=== PATIENT | female | born 1990 | race Caucasian/White ===

== ENCOUNTER 2017-04-14 23:36 | Emergency (ER) | payer SELFPAY ==
[~2017-04-14] VITALS: Ht 175.3 cm; Wt 108.0 kg
[2017-04-14] MEDS ORDERED: NKM (23:57)
[2017-04-14 23:59] VITALS: BP 123/82
[2017-04-15] MEDS ORDERED: Morphine Sulfate 4mg/ml Inj IVP ONE (00:30)
[2017-04-15 00:38] LABS: APPEARANCE,URINE CLEAR; KETONES,URINE NEGATIVE (NEGATIVE); LEUKOCYTE ESTERASE ,URINE 1+ (NEGATIVE); NITRITE,URINE NEGATIVE (NEGATIVE); PH,URINE 5 (4.5-8.0); PROTEIN,URINE 2+ (NEGATIVE); UROBILINOGEN,URINE NORMAL MG/DL (0.0-1.0)
[2017-04-15 00:43] LABS: BASOPHILS % (AUTO) 0.6 % (0.0-2.0); EOSINOPHILS % (AUTO) 1.2 % (0.0-3.0); LYMPHOCYTES % (AUTO) 17.2 % (20.0-45.0); MEAN CORPUSCULAR HEMOGLOBIN 27.9 PG (27.0-31.0); MEAN CORPUSCULAR HGB CONC 33.1 G/DL (32.0-36.0); MEAN CORPUSCULAR VOLUME 84 FL (80-99); MEAN PLATELET VOLUME 9.4 FL (6.5-10.1); MONOCYTES % (AUTO) 5.1 % (1.0-10.0); NEUTROPHILS % (AUTO) 75.9 % (45.0-75.0); PLATELET COUNT 171 K/UL (150-450); RED BLOOD COUNT 4.68 M/UL (4.20-5.40); RED CELL DISTRIBUTION WIDTH 12.6 % (11.6-14.8); WHITE BLOOD COUNT 10.5 K/UL (4.8-10.8)
[2017-04-15 00:48] LABS: BACTERIA,URINE FEW /HPF; RBC,URINE 0-2 /HPF (0 - 2); SQUAMOUS EPITHELIAL CELL,UR FEW /LPF (NONE/OCC)
[2017-04-15 00:56] LABS: ALANINE AMINOTRANSFERASE 41 U/L (3-33); ALBUMIN/GLOBULIN RATIO 1.1 (1.0-2.7); ANION GAP 12 (5-15); ASPARTATE AMINO TRANSFERASE 57 U/L (5-40); CARBON DIOXIDE 27 mEQ/L (20-30); CHLORIDE 100 mEQ/L (98-107); CREATININE 0.9 mg/dL (0.5-0.9); GLOMERULAR FILTRATION RATE > 60 mL/min (>60); HEMOLYSIS 4; LIPASE 49 U/L (< 60); POTASSIUM 4.1 mEQ/L (3.4-4.9); SODIUM 139 mEQ/L (135-145); TOTAL PROTEIN 7.6 g/dL (6.6-8.7)
[2017-04-15] MEDS ORDERED: HYDROCODON-ACE1 EA15 ORAL (01:33)
--- NOTE | 2017-04-15 01:33 | Emergency Room Report ---
History of Present Illness General Chief Complaint: Abdominal Pain Source: Patient Present Illness HPI Is a 26-year-old female with no significant past medical history. She did have a history of gallstone diagnosed last year. Since then she gained a lot of weight. She complaining of epigastric arrival quadrant pain. Pain radiating to the back. Onset for last couple hours. Nausea but no vomiting. No fever chills but no diarrhea. Pain is 9/10. Allergies: Coded Allergies: IBUPROFEN (Verified Allergy, Unknown, 04/14/17) Patient History Past Medical History: see triage record, old chart reviewed Past Surgical History: none Pertinent Family History: none Social History: Denies: smoking Last Menstrual Period: 04/07/17 Now: No Immunizations: other Reviewed Nursing Documentation: PMH: Agreed, PSxH: Agreed Nursing Documentation-PMH Past Medical History: No History, Except For Review of Systems Eye: Denies: eye pain, blurred vision ENT: Denies: ear pain, nose congestion, throat swelling Respiratory: Denies: cough, shortness of breath Cardiovascular: Denies: chest pain, palpitations Gastrointestinal: Reports: abdominal pain, Denies: diarrhea, nausea, vomiting Musculoskeletal: Denies: back pain, joint pain Skin: Denies: rash Neurological: Denies: headache, numbness Endocrine: Denies: increased thirst, increased urine Hematologic/Lymphatic: Denies: easy bruising All Other Systems: negative except mentioned in HPI Physical Exam Vital Signs Date Time Temp Pulse Resp B/P (MAP) Pulse Ox O2 Delivery O2 Flow Rate FiO2 04/14/17 23:53 98.8 70 17 123/82 99 Room Air vitals normal Sp02 EP Interpretation: reviewed, normal General Appearance: well appearing, no apparent distress, alert Head: normocephalic, atraumatic Eyes: bilateral eye PERRL, bilateral eye EOMI ENT: hearing grossly normal, normal pharynx Neck: full range of motion, supple, no meningismus Respiratory: chest non-tender, lungs clear, normal breath sounds Cardiovascular #1: regular rate, rhythm, no murmur Gastrointestinal: normal bowel sounds, no mass, no organomegaly, no bruit, non- distended, tenderness - Epigastric/right upper quadrant pain Musculoskeletal: back normal, gait/station normal, normal range of motion Psychiatric: mood/affect normal Skin: warm/dry Medical Decision Making Diagnostic Impression: Primary Impression: Biliary colic symptom ER Course Patient with biliary colic. No evidence of obstruction or infection. She felt better now. We will discharge home. Lab Results Impression labs unremarkable Last Vital Signs Date Time Temp Pulse Resp B/P (MAP) Pulse Ox O2 Delivery O2 Flow Rate FiO2 04/15/17 00:54 98.8 04/14/17 23:59 70 17 123/82 99 Room Air Status: improved Disposition: HOME, SELF-CARE Condition: Stable Scripts Hydrocodone/Acetaminophen 5-325* (HYDROCODONE/ACETAMINOPHEN 5-325*) 1 Each Tablet 1 TAB ORAL Q6H Y for For Pain, #30 TAB 0 Refills Prov: RACHEAL LEE M.D. 04/15/17 Additional Instructions: Followup with your Dr. in 7 days. You may need a referral to see a surgeon. Return if symptom worsen. RACHEAL LEE M.D. Apr 15, 2017 01:33
[2017-04-15 01:34] VITALS: BP 123/82
== END 2017-04-15 01:34 | disposition home or self-care (01) ==
LOC: EMR 04-15 00:02
DX: K80.50 Calculus of bile duct without cholangitis or cholecystitis without obstruction (principal); Z88.6 Allergy status to analgesic agent
CPT/HCPCS: 36415; 80053; 81003; 81025; 83690; 85025; 96361; 96374; 96375; 99284; J2270; J2405

== ENCOUNTER 2018-07-28 05:46 | Inpatient (IN) | payer OTHER ==
[~2018-07-28] VITALS: Ht 172.7 cm; Wt 117.9 kg
[~2018-07-28 05:46] MED LIST: HYDROCODON-ACE1 EA15 ORAL; NKM
[2018-07-28] MEDS ORDERED: ZOFRAN4 M3 ORAL (06:11)
[2018-07-28] MEDS ORDERED: IBUPROFEN600 MG ORAL (06:11)
[2018-07-28] MEDS ORDERED: Sodium Chloride 500ML 500 ML IV ONE (06:22)
[2018-07-28] MEDS ORDERED: Isovue-300 100ml vial INJ PRN (06:30)
[2018-07-28] MEDS ORDERED: Morphine Sulfate 4mg/ml Inj (IV/IM USE ONLY) IVP ONE ×2 (06:30→11:30)
[2018-07-28 06:39] LABS: APPEARANCE,URINE CLEAR; BILIRUBIN, URINE NEGATIVE (NEGATIVE); GLUCOSE, URINE (UA) NEGATIVE (NEGATIVE); KETONES,URINE NEGATIVE (NEGATIVE); LEUKOCYTE ESTERASE ,URINE 1+ (NEGATIVE); NITRITE,URINE NEGATIVE (NEGATIVE); PH,URINE 5 (4.5-8.0); PROTEIN,URINE 1+ (NEGATIVE); UROBILINOGEN,URINE NORMAL MG/DL (0.0-1.0)
[2018-07-28 06:52] LABS: COLOR,URINE YELLOW
[2018-07-28] MEDS ORDERED: Morphine Sulfate 4mg/ml Inj (IV/IM USE ONLY) ONE (07:06)
[2018-07-28 07:29] LABS: BASOPHILS % (AUTO) 0.6 % (0.0-2.0); EOSINOPHILS % (AUTO) 1.1 % (0.0-3.0); HEMATOCRIT 39.3 % (37.0-47.0); HEMOGLOBIN 12.8 G/DL (12.0-16.0); LYMPHOCYTES % (AUTO) 10.5 % (20.0-45.0); MEAN CORPUSCULAR VOLUME 78 FL (80-99); MONOCYTES % (AUTO) 4.8 % (1.0-10.0); NEUTROPHILS % (AUTO) 83.1 % (45.0-75.0); PLATELET COUNT 177 K/UL (150-450); RED BLOOD COUNT 5.02 M/UL (4.20-5.40); RED CELL DISTRIBUTION WIDTH 12.3 % (11.6-14.8); WHITE BLOOD COUNT 12.2 K/UL (4.8-10.8)
[2018-07-28 07:42] LABS: ANION GAP 4 mmol/L (5-15); BLOOD UREA NITROGEN 12 mg/dL (7-18); CALCIUM 8.7 MG/DL (8.5-10.1); CARBON DIOXIDE 30 MMOL/L (21-32); CHLORIDE 105 MMOL/L (98-107); CREATININE 0.9 MG/DL (0.55-1.30); POTASSIUM 3.8 MMOL/L (3.5-5.1); SODIUM 139 MMOL/L (136-145)
[2018-07-28 07:47] LABS: ALANINE AMINOTRANSFERASE 41 U/L (12-78); ALBUMIN 3.4 G/DL (3.4-5.0); ALBUMIN/GLOBULIN RATIO 0.7 (1.0-2.7); ALKALINE PHOSPHATASE 93 U/L (46-116); ASPARTATE AMINO TRANSFERASE 18 U/L (15-37); BILIRUBIN,TOTAL 0.8 MG/DL (0.2-1.0)
--- NOTE | 2018-07-28 07:48 | Emergency Room Report ---
History of Present Illness General Chief Complaint: Abdominal Pain Source: Patient Present Illness HPI Patient is a 27-year-old female presented after increased right-sided flank pain. Patient gradual onset of symptoms. She reports having increased dysuria associated. She reports having increased right flank pain radiating to her back. Patient recently been diagnosed with gallstones. She had not been having any vomiting. She reports having increased pain after eating. She had the recent increased headache as well as mild sore throat. Allergies: Coded Allergies: IBUPROFEN (Verified Allergy, Unknown, 04/14/17) Patient History Last Menstrual Period: apr 07 Now: No Reviewed Nursing Documentation: PMH: Agreed; PSxH: Agreed Nursing Documentation-PMH Hx Gastrointestinal Problems: Yes - gall stone Review of Systems All Other Systems: negative except mentioned in HPI Physical Exam Vital Signs Date Time Temp Pulse Resp B/P (MAP) Pulse Ox O2 Delivery O2 Flow Rate FiO2 07/28/18 06:05 99.5 91 18 134/83 96 Room Air Sp02 EP Interpretation: reviewed, normal General Appearance: normal inspection, well appearing, no apparent distress, alert, GCS 15, non-toxic Head: atraumatic ENT: normal ENT inspection, hearing grossly normal, normal voice Neck: normal inspection, full range of motion, supple, no bony tend Respiratory: normal inspection, lungs clear, normal breath sounds, no respiratory distress, no retraction, no wheezing Cardiovascular #1: regular rate, rhythm, no edema Gastrointestinal: soft, tenderness - right upper quadrant Genitourinary: no CVA tenderness Musculoskeletal: normal inspection, back normal, normal range of motion Neurologic: normal inspection, alert, oriented x3, responsive, oyster shipper III-XII nml as tested, speech normal Psychiatric: normal inspection, judgement/insight normal, mood/affect normal Skin: normal inspection, normal color, no rash Medical Decision Making Diagnostic Impression: Primary Impression: Cholecystitis ER Course Patient presented for abdominal pain. Differential diagnoses included ischemic bowel, appendicitis, perforated viscus, abdominal aortic aneurysm, inferior myocardial infarction, viral gastroenteritis Because of complexity of patient's case laboratory testing and imaging studies were ordered. CT imaging showed evidence of cholecystitis read by radiology. Abdominal ultrasound showed no definite gallstones, fatty liver. The patient was given IV fluids as well as IV antibiotics.Dr. Parmar was contacted for surgical consult.Dr. Scott Wood was contacted for inpatient management due to panel position. Labs Test 07/28/18 06:15 07/28/18 06:40 Urine Color Yellow Urine Appearance Clear Urine pH 5 (4.5-8.0) Urine Specific [place] 1.020 (1.005-1.035) Urine Protein 1+ (NEGATIVE) Urine Glucose (UA) Negative (NEGATIVE) Urine Ketones Negative (NEGATIVE) Urine Blood Negative (NEGATIVE) Urine Nitrite Negative (NEGATIVE) Urine Bilirubin Negative (NEGATIVE) Urine Urobilinogen Normal MG/DL (0.0-1.0) Urine Leukocyte Esterase 1+ (NEGATIVE) Urine RBC 0-2 /HPF (0 - 2) Urine WBC 0-2 /HPF (0 - 2) Urine Squamous Epithelial Cells Few /LPF (NONE/OCC) Urine Bacteria Few /HPF (NONE) Urine Mucus Few /LPF (NONE/OCC) Urine HCG, Qualitative Negative (NEGATIVE) White Blood Count 12.2 K/UL (4.8-10.8) Red Blood Count 5.02 M/UL (4.20-5.40) Hemoglobin 12.8 G/DL (12.0-16.0) Hematocrit 39.3 % (37.0-47.0) Mean Corpuscular Volume 78 FL (80-99) Mean Corpuscular Hemoglobin 25.6 PG (27.0-31.0) Mean Corpuscular Hemoglobin Concent 32.6 G/DL (32.0-36.0) Red Cell Distribution Width 12.3 % (11.6-14.8) Platelet Count 177 K/UL (150-450) Mean Platelet Volume 9.2 FL (6.5-10.1) Neutrophils (%) (Auto) 83.1 % (45.0-75.0) Lymphocytes (%) (Auto) 10.5 % (20.0-45.0) Monocytes (%) (Auto) 4.8 % (1.0-10.0) Eosinophils (%) (Auto) 1.1 % (0.0-3.0) Basophils (%) (Auto) 0.6 % (0.0-2.0) Prothrombin Time 10.8 SEC (9.30-11.50) Prothromb Time International Ratio 1.0 (0.9-1.1) Activated Partial Thromboplast Time 35 SEC (23-33) Sodium Level 139 MMOL/L (136-145) Potassium Level 3.8 MMOL/L (3.5-5.1) Chloride Level 105 MMOL/L (98-107) Carbon Dioxide Level 30 MMOL/L (21-32) Anion Gap 4 mmol/L (5-15) Blood Urea Nitrogen 12 mg/dL (7-18) Creatinine 0.9 MG/DL (0.55-1.30) Estimat Glomerular Filtration Rate > 60 mL/min (>60) Glucose Level 125 MG/DL (74-106) Calcium Level 8.7 MG/DL (8.5-10.1) Total Bilirubin 0.8 MG/DL (0.2-1.0) Aspartate Amino Transf (AST/SGOT) 18 U/L (15-37) Alanine Aminotransferase (ALT/SGPT) 41 U/L (12-78) Alkaline Phosphatase 93 U/L (46-116) Total Protein 8.2 G/DL (6.4-8.2) Albumin 3.4 G/DL (3.4-5.0) Globulin 4.8 g/dL Albumin/Globulin Ratio 0.7 (1.0-2.7) Lipase 135 U/L (73-393) Last Vital Signs Date Time Temp Pulse Resp B/P (MAP) Pulse Ox O2 Delivery O2 Flow Rate FiO2 07/28/18 07:25 99.5 07/28/18 06:20 91 18 Room Air 07/28/18 06:05 134/83 96 Status: improved Disposition: HOME, SELF-CARE Condition: Stable Referrals: CAMERON BAZAN,REFERRING (PCP) You Fontenot MD Jul 28, 2018 07:48
[2018-07-28 08:12] VITALS: BP 128/83
--- NOTE | 2018-07-28 09:02 | Diagnostic Imaging Report ---
EXAM: CT Abdomen and Pelvis With Intravenous Contrast CLINICAL HISTORY: 27-year-old female with abdominal pain. TECHNIQUE: Axial computed tomography images of the abdomen and pelvis with intravenous contrast. Coronal and sagittal reformatted images were created and reviewed. CTDI is 52.65 mGy and DLP is 1947 mGy-cm. One or more of the following dose reduction techniques were used: automated exposure control, adjustment of the mA and/or kV according to patient size, use of iterative reconstruction technique. COMPARISON: None. FINDINGS: Lung bases: Unremarkable. ABDOMEN: Liver: Borderline/mildly enlarged, fatty liver. Gallbladder and bile ducts: Moderately distended gallbladder, with mild pericholecystic fat stranding, and probable partially rim calcified stone in the neck region, measuring up to approximately 2 cm. Mildly dilated CBD, measuring up to 10 mm in diameter, without obvious obstructing stone or mass. Pancreas: Unremarkable. Spleen: Unremarkable. Adrenals: Unremarkable. Kidneys and ureters: Unremarkable. Stomach and bowel: Unremarkable. PELVIS: Appendix: Unremarkable. Bladder: Unremarkable. Reproductive: Unremarkable. ABDOMEN and PELVIS: Intraperitoneal space: Minimal pelvic ascites. No free air. Bones/joints: No acute abnormality. Soft tissues: Grossly unremarkable. Vasculature: Unremarkable. Lymph nodes: No pathologically enlarged lymph nodes. IMPRESSION: Probable acute calculous cholecystitis; additional mildly dilated CBD, without obvious obstructing stone or mass. If further imaging evaluation is desired, suggest biliary ultrasound and/or abdominal MRI/MRCP.
--- NOTE | 2018-07-28 10:19 | Diagnostic Imaging Report ---
EXAM: US Abdomen Limited, Right Upper Quadrant CLINICAL HISTORY: ABD PAIN TECHNIQUE: Real-time ultrasound of the right upper quadrant with image documentation. COMPARISON: CT abdomen and pelvis dated 07/28/18. FINDINGS: Liver: Liver diameter of 21 cm. Diffusely echogenic liver, suggesting fatty infiltration. Gallbladder: Unremarkable. No gallstones. Normal wall thickness measuring 2.5 mm. No pericholecystic fluid. Common bile duct: Common bile duct diameter of 3 mm, within normal limits. No stones. No dilation. Pancreas: Unremarkable as visualized. Pancreatic body and tail are obscured by bowel gas. Right kidney: Right kidney length of 4.6 cm. Left kidney length of 13. 4 cm. Normal cortical thickness. No visible parenchymal lesions. No visible stones. No hydronephrosis. Spleen: Spleen diameter of 11.2 cm, within normal limits. Aorta: Visualized portions of the aorta appear unremarkable. Inferior vena cava: Visualized portions of the IVC appear unremarkable. Free fluid: No free fluid identified. IMPRESSION: No acute findings. No sonographic evidence of cholelithiasis. Normal caliber of the common bile duct on this exam. Hepatomegaly. Diffusely echogenic liver suggests fatty infiltration.
--- NOTE | 2018-07-28 10:52 | General Progress Note ---
Assessment/Plan Problem List: (1) Abdominal pain ICD Codes: R10.9 - Unspecified abdominal pain SNOMED: 52131643 Assessment/Plan possible acute joann no dilated CBD or elevated LFTS hold ERCP ordered HIDA scan fu surg Subjective ROS Limited/Unobtainable: Yes Allergies: Coded Allergies: IBUPROFEN (Verified Allergy, Unknown, 04/14/17) Subjective abd pain Objective Last 24 Hour Vital Signs Date Time Temp Pulse Resp B/P (MAP) Pulse Ox O2 Delivery O2 Flow Rate FiO2 07/28/18 08:12 73 17 128/83 99 Room Air 07/28/18 07:25 99.5 07/28/18 06:20 91 18 Room Air 07/28/18 06:05 99.5 91 18 134/83 96 Room Air Laboratory Tests 07/28/18 06:15: Urine Color Yellow, Urine Appearance Clear, Urine pH 5, Urine Specific [place] 1.020, Urine Protein 1+H, Urine Glucose (UA) Negative, Urine Ketones Negative, Urine Blood Negative, Urine Nitrite Negative, Urine Bilirubin Negative, Urine Urobilinogen Normal, Urine Leukocyte Esterase 1+H, Urine RBC 0-2, Urine WBC 0-2 , Urine Squamous Epithelial Cells Few, Urine Bacteria Few, Urine Mucus FewH, Urine HCG, Qualitative Negative 07/28/18 06:40: White Blood Count 12.2H, Red Blood Count 5.02, Hemoglobin 12.8, Hematocrit 39.3 , Mean Corpuscular Volume 78L, Mean Corpuscular Hemoglobin 25.6L, Mean Corpuscular Hemoglobin Concent 32.6, Red Cell Distribution Width 12.3, Platelet Count 177, Mean Platelet Volume 9.2, Neutrophils (%) (Auto) 83.1H, Lymphocytes ( %) (Auto) 10.5L, Monocytes (%) (Auto) 4.8, Eosinophils (%) (Auto) 1.1, Basophils (%) (Auto) 0.6, Prothrombin Time 10.8, Prothromb Time International Ratio 1.0, Activated Partial Thromboplast Time 35H, Sodium Level 139, Potassium Level 3.8, Chloride Level 105, Carbon Dioxide Level 30, Anion Gap 4L, Blood Urea Nitrogen 12, Creatinine 0.9, Estimat Glomerular Filtration Rate > 60, Glucose Level 125H, Calcium Level 8.7, Total Bilirubin 0.8, Aspartate Amino Transf (AST/SGOT) 18, Alanine Aminotransferase (ALT/SGPT) 41, Alkaline Phosphatase 93, Total Protein 8.2, Albumin 3.4, Globulin 4.8, Albumin/Globulin Ratio 0.7L, Lipase 135 Height (Feet): 5 Height (Inches): 8.00 Weight (Pounds): 260 General Appearance: alert EENT: normal ENT inspection Neck: supple Cardiovascular: normal rate Respiratory/Chest: lungs clear Abdomen: normal bowel sounds, soft, tender Extremities: non-tender John Milner MD Jul 28, 2018 10:52
--- NOTE | 2018-07-28 13:29 | Consultation ---
Consult Note Consult Note # [id number] Alberto Spring MD Jul 28, 2018 13:29
[2018-07-28 14:08] VITALS: BP 135/79
--- NOTE | 2018-07-28 14:18 | Consultation ---
History of Present Illness General Date patient seen: Jul 28, 2018 Chief Complaint: Abdominal Pain Reason for Consultation: abdominal pain Present Illness HPI 27 year old female presents with abdominal pain for 2-3 days. Pain initially noted as vague right sided abdominal pain on thrusday. since pain worsening and today was debilitating. came to ED for evaluation. intermittent nausea. no emesis. nml bowel function. pain mainly RUQ without radiation. prior similar symptoms and diagnosed with symptomatic cholelithiasis last year. in ED US/CT noted. surgery called to evaluate. patient seen, chart reviewed, patient examined. Allergies: Coded Allergies: IBUPROFEN (Verified Allergy, Unknown, 04/14/17) Medication History Scheduled No Known Medications* (NKM - No Known Medications*), 0 ., (Reported) Scheduled PRN Hydrocodone/Acetaminophen 5-325* (Hydrocodone/Acetaminophen 5-325*), 1 TAB ORAL Q6H PRN for For Pain Ibuprofen* (Motrin*), 600 MG ORAL Q6H PRN for For Pain, (Reported) Ondansetron* (Zofran*), 4 MG ORAL Q6H PRN for Nausea & Vomiting, (Reported) Patient History History Provided By: Patient, Medical Record, PMD Healthcare decision maker Resuscitation status Advanced Directive on File Past Medical/Surgical History Past Medical/Surgical History: (1) Abdominal pain (2) Cholecystitis Review of Systems All Other Systems: negative except mentioned in HPI Physical Exam General Appearance: no apparent distress, alert Lines, tubes and drains: peripheral HEENT: normocephalic, atraumatic Neck: supple, normal inspection Respiratory/Chest: normal breath sounds, no respiratory distress Cardiovascular/Chest: regular rhythm Abdomen: soft, no organomegaly, no mass, tender Extremities: non-tender, normal inspection, no calf tenderness Neurologic: alert, oriented x 3 Last 24 Hour Vital Signs Date Time Temp Pulse Resp B/P (MAP) Pulse Ox O2 Delivery O2 Flow Rate FiO2 07/28/18 14:08 100.7 72 17 135/79 (97) 98 07/28/18 08:12 73 17 128/83 99 Room Air 07/28/18 07:25 99.5 07/28/18 06:20 91 18 Room Air 07/28/18 06:05 99.5 91 18 134/83 96 Room Air Laboratory Tests Test 07/28/18 06:15 07/28/18 06:40 Urine Color Yellow Urine Appearance Clear Urine pH 5 (4.5-8.0) Urine Specific [place] 1.020 (1.005-1.035) Urine Protein 1+ (NEGATIVE) H Urine Glucose (UA) Negative (NEGATIVE) Urine Ketones Negative (NEGATIVE) Urine Blood Negative (NEGATIVE) Urine Nitrite Negative (NEGATIVE) Urine Bilirubin Negative (NEGATIVE) Urine Urobilinogen Normal MG/DL (0.0-1.0) Urine Leukocyte Esterase 1+ (NEGATIVE) H Urine RBC 0-2 /HPF (0 - 2) Urine WBC 0-2 /HPF (0 - 2) Urine Squamous Epithelial Cells Few /LPF (NONE/OCC) Urine Bacteria Few /HPF (NONE) Urine Mucus Few /LPF (NONE/OCC) H Urine HCG, Qualitative Negative (NEGATIVE) White Blood Count 12.2 K/UL (4.8-10.8) H Red Blood Count 5.02 M/UL (4.20-5.40) Hemoglobin 12.8 G/DL (12.0-16.0) Hematocrit 39.3 % (37.0-47.0) Mean Corpuscular Volume 78 FL (80-99) L Mean Corpuscular Hemoglobin 25.6 PG (27.0-31.0) L Mean Corpuscular Hemoglobin Concent 32.6 G/DL (32.0-36.0) Red Cell Distribution Width 12.3 % (11.6-14.8) Platelet Count 177 K/UL (150-450) Mean Platelet Volume 9.2 FL (6.5-10.1) Neutrophils (%) (Auto) 83.1 % (45.0-75.0) H Lymphocytes (%) (Auto) 10.5 % (20.0-45.0) L Monocytes (%) (Auto) 4.8 % (1.0-10.0) Eosinophils (%) (Auto) 1.1 % (0.0-3.0) Basophils (%) (Auto) 0.6 % (0.0-2.0) Prothrombin Time 10.8 SEC (9.30-11.50) Prothromb Time International Ratio 1.0 (0.9-1.1) Activated Partial Thromboplast Time 35 SEC (23-33) H Sodium Level 139 MMOL/L (136-145) Potassium Level 3.8 MMOL/L (3.5-5.1) Chloride Level 105 MMOL/L (98-107) Carbon Dioxide Level 30 MMOL/L (21-32) Anion Gap 4 mmol/L (5-15) L Blood Urea Nitrogen 12 mg/dL (7-18) Creatinine 0.9 MG/DL (0.55-1.30) Estimat Glomerular Filtration Rate > 60 mL/min (>60) Glucose Level 125 MG/DL (74-106) H Calcium Level 8.7 MG/DL (8.5-10.1) Total Bilirubin 0.8 MG/DL (0.2-1.0) Aspartate Amino Transf (AST/SGOT) 18 U/L (15-37) Alanine Aminotransferase (ALT/SGPT) 41 U/L (12-78) Alkaline Phosphatase 93 U/L (46-116) Total Protein 8.2 G/DL (6.4-8.2) Albumin 3.4 G/DL (3.4-5.0) Globulin 4.8 g/dL Albumin/Globulin Ratio 0.7 (1.0-2.7) L Lipase 135 U/L (73-393) Height (Feet): 5 Height (Inches): 8.00 Weight (Pounds): 260 Medications Current Medications Medications (Trade) Dose Ordered Sig/Kian Route PRN Reason Start Time Stop Time Status Last Admin Dose Admin Iopamidol (Isovue-300 100ml) 100 ml NOW PRN INJ Radiology Procedure 07/28/18 06:30 Piperacillin Sod/ Tazobactam Sod 3.375 gm/Sodium Chloride 110 ml @ 27.5 mls/hr EVERY 8 HOURS IVPB 07/28/18 14:30 08/02/18 14:29 Assessment/Plan Problem List: (1) Abdominal pain Assessment & Plan: likely acute cholecystitis based on history and exam CT noted US noted labs noted NPO IV fluids IV Abx HIDA scan thank you will follow with recs ICD Codes: R10.9 - Unspecified abdominal pain SNOMED: [id number] Qualifiers: Qualified Codes: R10.11 - Right upper quadrant pain Status: stable Bran Parmar Jul 28, 2018 14:18
[2018-07-28] MEDS: Piperacillin/Tazobactam 3.375 GM in NS 110 ML IVPB SCH ×2 (14:19→21:38)
[2018-07-28] MEDS ORDERED: LORazepam Inj 2mg/ml 1ml IV PRN (14:20)
[2018-07-28] MEDS ORDERED: Morphine Sulfate 2mg/ml Inj IVP PRN (14:21)
[2018-07-28] MEDS: D5NS w/KCl 40mEq 1000ml 1,000 ML IV SCH (15:59)
[2018-07-28 16:00] VITALS: BP 130/73
[2018-07-28] MEDS: Morphine Sulfate 4mg/ml Inj (IV/IM USE ONLY) IVP PRN (16:00)
[2018-07-28 20:00] VITALS: BP 127/74
--- NOTE | 2018-07-28 22:59 | Consultation ---
DATE OF CONSULTATION: 07/28/2018 INFECTIOUS DISEASES CONSULTATION CONSULTING PHYSICIAN: Alberto Spring M.D. REFERRING PHYSICIAN: Scott Wood D.O. REASON FOR CONSULTATION: Evaluation of the patient for cholecystitis, leukocytosis, and antibiotic management. HISTORY OF PRESENT ILLNESS: The patient is a 27-year-old female with past medical history significant for gallbladder stones, who was admitted to this medical center with complaint of right upper quadrant pain. The patient has history of vague abdominal pain postprandial in the right upper quadrant since Thanksgiving, however, since about 2 days ago, the patient has persistent pain in the area. On the first day, the patient had some nausea associated with diarrhea. The above symptom has resolved, however, the patient has persistent pain. At the time of admission, the patient was found to have white blood cells 12. There has been concern for possible cholecystitis. Infectious Diseases consultation has been requested for further evaluation of the patient and antibiotic management. PAST MEDICAL HISTORY: History of gallbladder stone. ALLERGIES: Ibuprofen. MEDICATIONS: Currently off of antibiotics. FAMILY HISTORY: Not contributing. SOCIAL HISTORY: Negative for alcohol, drug abuse, or smoking. PHYSICAL EXAMINATION: VITAL SIGNS: Temperature 99.5, blood pressure 120/73, pulse 73, respiratory rate 18. HEENT: No pale conjunctivae. No icterus. NECK: No lymphadenopathy. CHEST: Clear. HEART: S1 and S2. ABDOMEN: The patient has right upper quadrant tenderness. Rao sign positive. Bowel sounds present. EXTREMITIES: No cyanosis at this time. NEUROLOGIC: Awake and alert. SKIN: No rash. LABORATORY AND DIAGNOSTIC DATA: White blood cells 12.2, hemoglobin 12.8, platelet 177,000. UA unremarkable. BUN and creatinine normal. ALT, AST, alkaline phosphatase within normal range. Lipase 135. Ultrasound of the abdomen, no acute findings, no evidence of cholelithiasis. CT of the abdomen, probable acute calculous cholecystitis, mildly dilated common bile duct. ASSESSMENT: The patient is a 27-year-old female with: 1. Low-grade fever. 2. Leukocytosis. 3. Right upper quadrant pain, very suggestive of acute cholecystitis, history of cholelithiasis. PLAN: 1. We will continue the patient on IV Zosyn . 2. Monitor CBC. 3. BMP. 4. Monitor cultures (blood). 5. HIDA scan has been ordered. 6. We will follow GI and Surgical consultation recommendations. 7. Based on the patient's clinical course and laboratories, we will do further recommendations. Alberto Spring M.D. DR: Db JOB#: [id number] CC:
[2018-07-29] VITALS (8 sets, daily range): BP systolic 122–144; BP diastolic 18–94
[2018-07-29] MEDS: D5NS w/KCl 40mEq 1000ml 1,000 ML IV SCH ×3 (01:19→21:22)
[2018-07-29] MEDS: Morphine Sulfate 4mg/ml Inj (IV/IM USE ONLY) IVP PRN (01:42)
[2018-07-29 06:03] LABS: BASOPHILS % (AUTO) 0.7 % (0.0-2.0); HEMATOCRIT 39.4 % (37.0-47.0); LYMPHOCYTES % (AUTO) 7.3 % (20.0-45.0); MEAN CORPUSCULAR VOLUME 78 FL (80-99); NEUTROPHILS % (AUTO) 84.9 % (45.0-75.0); PLATELET COUNT 173 K/UL (150-450); RED BLOOD COUNT 5.07 M/UL (4.20-5.40); RED CELL DISTRIBUTION WIDTH 12.2 % (11.6-14.8); WHITE BLOOD COUNT 15.2 K/UL (4.8-10.8)
[2018-07-29 06:10] LABS: INR 1.1 (0.9-1.1)
[2018-07-29] MEDS: Piperacillin/Tazobactam 3.375 GM in NS 110 ML IVPB SCH ×3 (06:23→21:22)
[2018-07-29 06:43] LABS: ALANINE AMINOTRANSFERASE 76 U/L (12-78); ALBUMIN/GLOBULIN RATIO 0.6 (1.0-2.7); ALKALINE PHOSPHATASE 116 U/L (46-116); ANION GAP 7 mmol/L (5-15); ASPARTATE AMINO TRANSFERASE 50 U/L (15-37); BILIRUBIN,TOTAL 1.2 MG/DL (0.2-1.0); BLOOD UREA NITROGEN 8 mg/dL (7-18); CALCIUM 8.3 MG/DL (8.5-10.1); CARBON DIOXIDE 27 MMOL/L (21-32); CHLORIDE 102 MMOL/L (98-107); CREATININE 0.8 MG/DL (0.55-1.30); POTASSIUM 3.9 MMOL/L (3.5-5.1); SODIUM 136 MMOL/L (136-145)
[2018-07-29 06:44] LABS: BILIRUBIN,DIRECT 0.2 MG/DL (0.0-0.3)
--- NOTE | 2018-07-29 07:47 | General Progress Note ---
Assessment/Plan Problem List: (1) Abdominal pain ICD Codes: R10.9 - Unspecified abdominal pain SNOMED: [id number] Qualifiers: Qualified Codes: R10.11 - Right upper quadrant pain Assessment/Plan possible acute joann no dilated CBD or elevated LFTS hold ERCP ordered HIDA scan fu surg Subjective ROS Limited/Unobtainable: Yes Allergies: Coded Allergies: IBUPROFEN (Verified Allergy, Unknown, 04/14/17) Subjective abd pain Objective Last 24 Hour Vital Signs Date Time Temp Pulse Resp B/P (MAP) Pulse Ox O2 Delivery O2 Flow Rate FiO2 07/29/18 04:00 98.8 88 20 134/18 (56) 97 07/29/18 02:12 99.0 07/29/18 00:00 99.0 87 20 138/77 (97) 98 07/28/18 20:04 Room Air 07/28/18 20:00 98.8 86 18 127/74 (91) 98 07/28/18 16:47 100.0 07/28/18 16:00 101.0 80 18 130/73 (92) 98 07/28/18 14:08 100.7 72 17 135/79 (97) 98 07/28/18 14:07 Room Air 07/28/18 13:08 101.0 07/28/18 12:45 62 15 110/53 95 Room Air 07/28/18 08:12 73 17 128/83 99 Room Air Intake and Output 07/28/18 07/29/18 19:00 07:00 Intake Total 300 ml 710.0 ml Balance 300 ml 710.0 ml Intake Oral 200 ml IV Total 100 ml 710.0 ml # Voids 2 4 # Bowel Movements 1 Laboratory Tests 07/29/18 05:38: White Blood Count 15.2H, Red Blood Count 5.07, Hemoglobin 13.0, Hematocrit 39.4 , Mean Corpuscular Volume 78L, Mean Corpuscular Hemoglobin 25.7L, Mean Corpuscular Hemoglobin Concent 33.1, Red Cell Distribution Width 12.2, Platelet Count 173, Mean Platelet Volume 8.7, Neutrophils (%) (Auto) 84.9H, Lymphocytes ( %) (Auto) 7.3L, Monocytes (%) (Auto) 7.0, Eosinophils (%) (Auto) 0.0, Basophils (%) (Auto) 0.7, Prothrombin Time 11.7H, Prothromb Time International Ratio 1.1, Activated Partial Thromboplast Time 38H, Sodium Level 136, Potassium Level 3.9, Chloride Level 102, Carbon Dioxide Level 27, Anion Gap 7, Blood Urea Nitrogen 8 , Creatinine 0.8, Estimat Glomerular Filtration Rate > 60, Glucose Level 127H, Calcium Level 8.3L, Total Bilirubin 1.2H, Direct Bilirubin 0.2, Aspartate Amino Transf (AST/SGOT) 50H, Alanine Aminotransferase (ALT/SGPT) 76, Alkaline Phosphatase 116, Total Protein 7.9, Albumin 3.0L, Globulin 4.9, Albumin/ Globulin Ratio 0.6L Height (Feet): 5 Height (Inches): 8.00 Weight (Pounds): 260 General Appearance: alert EENT: normal ENT inspection Neck: supple Cardiovascular: normal rate Respiratory/Chest: lungs clear Abdomen: soft, tender Extremities: non-tender John Milner MD Jul 29, 2018 07:47
[2018-07-29] MEDS: Morphine Sulfate 2mg/ml Inj IVP PRN ×2 (08:43→14:43)
[2018-07-29] MEDS ORDERED: Tubing IV Secondary IV ONE (08:43)
--- NOTE | 2018-07-29 14:59 | General Surgery Progress Note ---
General Surgery-Progress Note Subjective Additional Comments fevers. leukocytosis. RUQ tenderness. HIDA pending Objective Last 24 Hour Vital Signs Date Time Temp Pulse Resp B/P (MAP) Pulse Ox O2 Delivery O2 Flow Rate FiO2 07/29/18 12:00 100.0 82 20 122/83 (96) 97 07/29/18 10:30 98.8 86 20 131/82 (98) 97 07/29/18 09:35 100.1 07/29/18 09:00 Room Air 07/29/18 08:00 101.0 96 20 144/94 (111) 96 07/29/18 04:00 98.8 88 20 134/18 (56) 97 07/29/18 02:12 99.0 07/29/18 00:00 99.0 87 20 138/77 (97) 98 07/28/18 20:04 Room Air 07/28/18 20:00 98.8 86 18 127/74 (91) 98 07/28/18 16:00 101.0 80 18 130/73 (92) 98 I&O Intake and Output 07/28/18 07/29/18 19:00 07:00 Intake Total 300 ml 810.0 ml Balance 300 ml 810.0 ml Intake Oral 200 ml IV Total 100 ml 810.0 ml # Voids 2 4 # Bowel Movements 1 Drains: none Cardiovascular: RSR Respiratory: clear Abdomen: soft, tenderness, present bowel sounds Extremities: no cyanosis Laboratory Tests Test 07/29/18 05:38 White Blood Count 15.2 K/UL (4.8-10.8) H Red Blood Count 5.07 M/UL (4.20-5.40) Hemoglobin 13.0 G/DL (12.0-16.0) Hematocrit 39.4 % (37.0-47.0) Mean Corpuscular Volume 78 FL (80-99) L Mean Corpuscular Hemoglobin 25.7 PG (27.0-31.0) L Mean Corpuscular Hemoglobin Concent 33.1 G/DL (32.0-36.0) Red Cell Distribution Width 12.2 % (11.6-14.8) Platelet Count 173 K/UL (150-450) Mean Platelet Volume 8.7 FL (6.5-10.1) Neutrophils (%) (Auto) 84.9 % (45.0-75.0) H Lymphocytes (%) (Auto) 7.3 % (20.0-45.0) L Monocytes (%) (Auto) 7.0 % (1.0-10.0) Eosinophils (%) (Auto) 0.0 % (0.0-3.0) Basophils (%) (Auto) 0.7 % (0.0-2.0) Prothrombin Time 11.7 SEC (9.30-11.50) H Prothromb Time International Ratio 1.1 (0.9-1.1) Activated Partial Thromboplast Time 38 SEC (23-33) H Sodium Level 136 MMOL/L (136-145) Potassium Level 3.9 MMOL/L (3.5-5.1) Chloride Level 102 MMOL/L (98-107) Carbon Dioxide Level 27 MMOL/L (21-32) Anion Gap 7 mmol/L (5-15) Blood Urea Nitrogen 8 mg/dL (7-18) Creatinine 0.8 MG/DL (0.55-1.30) Estimat Glomerular Filtration Rate > 60 mL/min (>60) Glucose Level 127 MG/DL (74-106) H Calcium Level 8.3 MG/DL (8.5-10.1) L Total Bilirubin 1.2 MG/DL (0.2-1.0) H Direct Bilirubin 0.2 MG/DL (0.0-0.3) Aspartate Amino Transf (AST/SGOT) 50 U/L (15-37) H Alanine Aminotransferase (ALT/SGPT) 76 U/L (12-78) Alkaline Phosphatase 116 U/L (46-116) Total Protein 7.9 G/DL (6.4-8.2) Albumin 3.0 G/DL (3.4-5.0) L Globulin 4.9 g/dL Albumin/Globulin Ratio 0.6 (1.0-2.7) L Plan Problems: (1) Abdominal pain Assessment & Plan: likely acute cholecystitis based on history and exam CT noted US noted labs noted febrile/leukocytosis RUQ tender NPO p MN IV fluids IV Abx HIDA scan thank you will follow with Bran Vides Jul 29, 2018 14:59
--- NOTE | 2018-07-29 17:29 | History and Physical Report ---
DATE OF ADMISSION: 07/28/2018 TIME SEEN: On 07/29/2018 at 8 a.m. CONSULTANTS: 1. John Milner M.D. 2. Bran Parmar M.D. 3. Alberto Spring M.D. 4. Marce Gutierres M.D. CHIEF COMPLAINT: Right upper quadrant pain, cholecystitis. BRIEF HISTORY: This is a 27-year-old female, who lives at home and presented with slight nausea and abdominal pain for 3 days and also right upper quadrant pain, came to [place], diagnosed with cholecystitis and leukocytosis, and admitted to medical floor for further treatment. Currently, calm in bed, slight abdominal pain, no complaint. REVIEW OF SYSTEMS: No chest pain. No shortness of breath. Slight nausea. No vomiting or diarrhea. PAST MEDICAL HISTORY: Nothing. PAST SURGICAL HISTORY: Nothing. ALLERGIES: Ibuprofen. MEDICATIONS: Include Pepcid, Tylenol, Zosyn, morphine, Zofran, lorazepam, diphenhydramine. SOCIAL HISTORY: No smoking. No alcohol. No intravenous drug abuse. FAMILY HISTORY: Noncontributory. PHYSICAL EXAMINATION: GENERAL: Calm in bed, oriented x3, in no acute distress. VITAL SIGNS: Temperature is 101, pulse 96, respirations 20, and blood pressure 144/91. CARDIOVASCULAR: No murmur. LUNGS: Distant and clear. ABDOMEN: Bowel sounds positive. Slightly tender. No guarding. No rigidity. No rebound. EXTREMITIES: No cyanosis or edema. LABORATORY AND DIAGNOSTIC DATA: Laboratories at this time show white count 15, otherwise CBC is normal. BMP shows glucose 127, calcium 8.3, AST 50, albumin 3.0, otherwise normal. INR is 1.1 and PTT is 38. Urinalysis shows 1+ leukocyte esterase. ASSESSMENT: Cholecystitis, UTI, fever. PLAN: Continue previous medications. Antibiotics per Infectious Disease. Fever control. Dietary followup. GI and Surgery followup. CBC and BMP in the morning. Scott Wood D.O. DR: Adeline JOB#: [id number] CC:
[2018-07-30] VITALS: BP 123/74
[2018-07-30 04:00] VITALS: BP 134/92
[2018-07-30] MEDS: Morphine Sulfate 4mg/ml Inj (IV/IM USE ONLY) IVP PRN (04:42)
[2018-07-30] MEDS: Piperacillin/Tazobactam 3.375 GM in NS 110 ML IVPB SCH ×3 (05:35→20:52)
[2018-07-30 06:30] LABS: BASOPHILS % (AUTO) 0.4 % (0.0-2.0); EOSINOPHILS % (AUTO) 0.3 % (0.0-3.0); HEMATOCRIT 34.3 % (37.0-47.0); HEMOGLOBIN 11.4 G/DL (12.0-16.0); LYMPHOCYTES % (AUTO) 7.5 % (20.0-45.0); MEAN CORPUSCULAR VOLUME 78 FL (80-99); MONOCYTES % (AUTO) 7.1 % (1.0-10.0); NEUTROPHILS % (AUTO) 84.8 % (45.0-75.0); PLATELET COUNT 171 K/UL (150-450); RED BLOOD COUNT 4.39 M/UL (4.20-5.40); RED CELL DISTRIBUTION WIDTH 12.2 % (11.6-14.8); WHITE BLOOD COUNT 15.2 K/UL (4.8-10.8)
[2018-07-30] MEDS: D5NS w/KCl 40mEq 1000ml 1,000 ML IV SCH ×2 (06:33→16:41)
[2018-07-30 06:54] LABS: ANION GAP 8 mmol/L (5-15); BLOOD UREA NITROGEN 6 mg/dL (7-18); CALCIUM 8.2 MG/DL (8.5-10.1); CARBON DIOXIDE 25 MMOL/L (21-32); CHLORIDE 104 MMOL/L (98-107); CREATININE 0.8 MG/DL (0.55-1.30); POTASSIUM 3.9 MMOL/L (3.5-5.1); SODIUM 137 MMOL/L (136-145)
[2018-07-30 08:00] VITALS: BP 108/66
[2018-07-30] MEDS: Morphine Sulfate 2mg/ml Inj IVP PRN (09:15)
--- NOTE | 2018-07-30 11:43 | Infectious Diseases Prog Note ---
Assessment/Plan Assessment/Plan ASSESSMENT: The patient is a 27-year-old female with: Sepsis -u/a neg -Bcx NTD Fever. Leukocytosis. Right upper quadrant pain, very suggestive of acute cholecystitis, history of cholelithiasis.- US discordant with CT abd/p but high clinical suspicion, HIDA sc pending -Abd US: No acute findings. No sonographic evidence of cholelithiasis. Normal caliber of the common bile duct on this exam. Hepatomegaly. Diffusely echogenic liver suggests fatty infiltration. -CT abd/p: Probable acute calculous cholecystitis; additional mildly dilated CBD, without obvious obstructing stone or mass. If further imaging evaluation is desired, suggest biliary ultrasound and/or abdominal MRI/MRCP. PLAN: 1. We will continue the patient on IV Zosyn #3 2. Monitor CBC. 3. BMP. 4. Monitor cultures (blood). 5. HIDA scan has been ordered. 6. We will follow GI and Surgical consultation recommendations. 7. Based on the patient's clinical course and laboratories, we will do further recommendations. 8. Influenza sc, CXR Subjective Allergies: Coded Allergies: IBUPROFEN (Verified Allergy, Unknown, 04/14/17) Subjective Tm 102.8 wbc 15 Bcx NTD HIDA sc p Objective Vital Signs Last 24 Hour Vital Signs Date Time Temp Pulse Resp B/P (MAP) Pulse Ox O2 Delivery O2 Flow Rate FiO2 07/30/18 09:45 99.6 07/30/18 08:21 Room Air 07/30/18 08:00 99.6 84 20 108/66 (80) 97 07/30/18 05:38 100.3 07/30/18 04:00 101.2 98 20 134/92 (106) 96 07/30/18 00:00 100.4 90 18 123/74 (90) 96 07/29/18 21:00 Room Air 07/29/18 20:00 102.8 108 18 126/85 (99) 97 07/29/18 18:48 102.5 83 20 128/80 (96) 97 07/29/18 15:30 101.2 83 20 124/81 (95) 97 07/29/18 12:00 100.0 82 20 122/83 (96) 97 Height (Feet): 5 Height (Inches): 8.00 Weight (Pounds): 260 Objective HEENT: No pale conjunctivae. No icterus. NECK: No lymphadenopathy. CHEST: Clear. HEART: S1 and S2. ABDOMEN: The patient has right upper quadrant tenderness. Rao sign positive. Bowel sounds present. EXTREMITIES: No cyanosis at this time. NEUROLOGIC: Awake and alert. SKIN: No rash. Microbiology Date/Time Source Procedure Growth Status 07/28/18 15:00 Blood Blood Culture - Preliminary NO GROWTH AFTER 24 HOURS Resulted 07/28/18 15:00 Blood Blood Culture - Preliminary NO GROWTH AFTER 24 HOURS Resulted Laboratory Tests Test 07/30/18 05:25 White Blood Count 15.2 K/UL (4.8-10.8) H Red Blood Count 4.39 M/UL (4.20-5.40) Hemoglobin 11.4 G/DL (12.0-16.0) L Hematocrit 34.3 % (37.0-47.0) L Mean Corpuscular Volume 78 FL (80-99) L Mean Corpuscular Hemoglobin 25.9 PG (27.0-31.0) L Mean Corpuscular Hemoglobin Concent 33.2 G/DL (32.0-36.0) Red Cell Distribution Width 12.2 % (11.6-14.8) Platelet Count 171 K/UL (150-450) Mean Platelet Volume 9.2 FL (6.5-10.1) Neutrophils (%) (Auto) 84.8 % (45.0-75.0) H Lymphocytes (%) (Auto) 7.5 % (20.0-45.0) L Monocytes (%) (Auto) 7.1 % (1.0-10.0) Eosinophils (%) (Auto) 0.3 % (0.0-3.0) Basophils (%) (Auto) 0.4 % (0.0-2.0) Sodium Level 137 MMOL/L (136-145) Potassium Level 3.9 MMOL/L (3.5-5.1) Chloride Level 104 MMOL/L (98-107) Carbon Dioxide Level 25 MMOL/L (21-32) Anion Gap 8 mmol/L (5-15) Blood Urea Nitrogen 6 mg/dL (7-18) L Creatinine 0.8 MG/DL (0.55-1.30) Estimat Glomerular Filtration Rate > 60 mL/min (>60) Glucose Level 124 MG/DL (74-106) H Calcium Level 8.2 MG/DL (8.5-10.1) L Current Medications Medications (Trade) Dose Ordered Sig/Kian Route PRN Reason Start Time Stop Time Status Last Admin Dose Admin Acetaminophen (Tylenol) 650 mg Q6H PRN ORAL Temp > 100.5 07/28/18 16:15 08/27/18 16:14 07/30/18 04:41 Dextrose (Dextrose 50%) 25 ml Q30M PRN IV Hypoglycemia 07/28/18 14:20 08/27/18 14:19 Dextrose (Dextrose 50%) 50 ml Q30M PRN IV Hypoglycemia 07/28/18 14:20 08/27/18 14:19 Dextrose/ Electrolytes 1,000 ml @ 100 mls/hr Q10H IV 07/28/18 15:00 08/27/18 14:59 07/30/18 06:33 Diphenhydramine HCl (Benadryl) 25 mg Q6H PRN ORAL Itching/Pruritis 07/28/18 14:20 08/27/18 14:19 Famotidine (Pepcid I.v.) 20 mg Q12HR IVP 07/28/18 21:00 08/27/18 20:59 07/30/18 10:14 Lorazepam (Ativan 2mg/ml 1ml) 0.5 mg Q4H PRN IV For Anxiety 07/28/18 14:20 08/04/18 14:19 Morphine Sulfate (Morphine Sulfate) 1 mg Q4H PRN IVP Mild Pain (Scale 1-3) 07/28/18 14:21 08/04/18 14:20 Morphine Sulfate (Morphine Sulfate) 2 mg Q4H PRN IVP Moderate Pain (Pain Scale 4-6) 07/28/18 14:21 08/04/18 14:20 07/30/18 09:15 Morphine Sulfate (Morphine Sulfate) 4 mg Q4H PRN IVP Severe Pain (Pain Scale 7-10) 07/28/18 14:22 08/04/18 14:21 07/30/18 04:42 Ondansetron HCl (Zofran) 4 mg Q6H PRN IVP Nausea & Vomiting 07/28/18 14:20 08/27/18 14:19 Piperacillin Sod/ Tazobactam Sod 3.375 gm/Sodium Chloride 110 ml @ 27.5 mls/hr EVERY 8 HOURS IVPB 07/28/18 14:30 08/02/18 14:29 07/30/18 05:35 Diamond Jacobson M.D. Jul 30, 2018 11:43
--- NOTE | 2018-07-30 11:51 | GI Progress Note ---
Assessment/Plan Problems: (1) Abdominal pain ICD Codes: R10.9 - Unspecified abdominal pain SNOMED: 91501114 Qualifiers: Qualified Codes: R10.11 - Right upper quadrant pain (2) Cholecystitis ICD Codes: K81.9 - Cholecystitis, unspecified SNOMED: 09530506 Status: unchanged Status Narrative Discussed with Dr. Milner. Assessment/Plan possible acute joann no dilated CBD or elevated LFTS hold ERCP HIDA scan today fu surg The patient was seen and examined at bedside and all new and available data was reviewed in the patients chart. I agree with the above findings, impression and plan. (Patient seen earlier today. Signature stamp does not reflect patient encounter time.). - John Milner MD Subjective Gastrointestinal/Abdominal: Reports: abdominal pain Objective Last 24 Hour Vital Signs Date Time Temp Pulse Resp B/P (MAP) Pulse Ox O2 Delivery O2 Flow Rate FiO2 07/30/18 09:45 99.6 07/30/18 08:21 Room Air 07/30/18 08:00 99.6 84 20 108/66 (80) 97 07/30/18 05:38 100.3 07/30/18 04:00 101.2 98 20 134/92 (106) 96 07/30/18 00:00 100.4 90 18 123/74 (90) 96 07/29/18 21:00 Room Air 07/29/18 20:00 102.8 108 18 126/85 (99) 97 07/29/18 18:48 102.5 83 20 128/80 (96) 97 07/29/18 15:30 101.2 83 20 124/81 (95) 97 07/29/18 12:00 100.0 82 20 122/83 (96) 97 Intake and Output 07/29/18 07/30/18 19:00 07:00 Intake Total 1720.0 ml 1360.0 ml Balance 1720.0 ml 1360.0 ml Intake Oral 400 ml 500 ml IV Total 1320.0 ml 860.0 ml # Voids 4 3 # Bowel Movements 1 Laboratory Tests Test 07/30/18 05:25 White Blood Count 15.2 K/UL (4.8-10.8) H Red Blood Count 4.39 M/UL (4.20-5.40) Hemoglobin 11.4 G/DL (12.0-16.0) L Hematocrit 34.3 % (37.0-47.0) L Mean Corpuscular Volume 78 FL (80-99) L Mean Corpuscular Hemoglobin 25.9 PG (27.0-31.0) L Mean Corpuscular Hemoglobin Concent 33.2 G/DL (32.0-36.0) Red Cell Distribution Width 12.2 % (11.6-14.8) Platelet Count 171 K/UL (150-450) Mean Platelet Volume 9.2 FL (6.5-10.1) Neutrophils (%) (Auto) 84.8 % (45.0-75.0) H Lymphocytes (%) (Auto) 7.5 % (20.0-45.0) L Monocytes (%) (Auto) 7.1 % (1.0-10.0) Eosinophils (%) (Auto) 0.3 % (0.0-3.0) Basophils (%) (Auto) 0.4 % (0.0-2.0) Sodium Level 137 MMOL/L (136-145) Potassium Level 3.9 MMOL/L (3.5-5.1) Chloride Level 104 MMOL/L (98-107) Carbon Dioxide Level 25 MMOL/L (21-32) Anion Gap 8 mmol/L (5-15) Blood Urea Nitrogen 6 mg/dL (7-18) L Creatinine 0.8 MG/DL (0.55-1.30) Estimat Glomerular Filtration Rate > 60 mL/min (>60) Glucose Level 124 MG/DL (74-106) H Calcium Level 8.2 MG/DL (8.5-10.1) L Height (Feet): 5 Height (Inches): 8.00 Weight (Pounds): 260 General Appearance: WD/WN, no apparent distress, alert Cardiovascular: normal rate Respiratory/Chest: normal breath sounds, no respiratory distress Abdominal Exam: normal bowel sounds, non tender, soft Extremities: normal range of motion, non-tender Malou Salguero NP Jul 30, 2018 11:51
[2018-07-30 12:00] VITALS: BP 131/91
--- NOTE | 2018-07-30 12:32 | Diagnostic Imaging Report ---
Indication: Abdominal Pain Technique: 5.5 mCi of technetium 99 m-Choletec was injected intravenously. Planar imaging of the abdomen was then performed every 5 minutes up to 30 minutes and every 10 minutes up to one hour. Oblique views were also obtained. 2 mg of morphine given intravenously at 60 minutes Findings: There is prompt uptake within the liver with good washout of radiotracer from the liver on subsequent imaging. There is excretion into the biliary ducts. No gallbladder activity is demonstrated indicating obstruction of the cystic duct. The CBD is widely patent with the tracer activity noted within duodenum in a timely fashion. IMPRESSION: Positive study showing cystic duct obstruction. Findings consistent with acute cholecystitis
--- NOTE | 2018-07-30 13:36 | Consultation ---
History of Present Illness General Date patient seen: Jul 30, 2018 Chief Complaint: Abdominal Pain Reason for Consultation: inpatient management Present Illness HPI 27-year-old female presented after increased right-sided flank pain with gradual onset of symptoms. She reports having increased dysuria associated. Patient recently been diagnosed with gallstones. She reports having increased pain after eating. She is admitted for possible cholecystitis. Allergies: Coded Allergies: IBUPROFEN (Verified Allergy, Unknown, 04/14/17) Medication History Scheduled No Known Medications* (NKM - No Known Medications*), 0 ., (Reported) Scheduled PRN Hydrocodone/Acetaminophen 5-325* (Hydrocodone/Acetaminophen 5-325*), 1 TAB ORAL Q6H PRN for For Pain Ibuprofen* (Motrin*), 600 MG ORAL Q6H PRN for For Pain, (Reported) Ondansetron* (Zofran*), 4 MG ORAL Q6H PRN for Nausea & Vomiting, (Reported) Patient History Healthcare decision maker Shannan Garcia Resuscitation status Full Code Advanced Directive on File No Review of Systems All Other Systems: negative except mentioned in HPI Physical Exam General Appearance: WD/WN Lines, tubes and drains: peripheral HEENT: normocephalic, atraumatic Neck: non-tender, normal alignment Respiratory/Chest: chest wall non-tender, lungs clear Breasts: no masses Cardiovascular/Chest: normal peripheral pulses Abdomen: normal bowel sounds, non tender Genitourinary/Rectal: normal genital exam Extremities: normal range of motion Skin Exam: normal pigmentation Last 24 Hour Vital Signs Date Time Temp Pulse Resp B/P (MAP) Pulse Ox O2 Delivery O2 Flow Rate FiO2 07/30/18 13:05 101.5 07/30/18 12:59 101.5 07/30/18 12:00 101.1 93 19 131/91 (104) 100 07/30/18 09:45 99.6 07/30/18 08:21 Room Air 07/30/18 08:00 99.6 84 20 108/66 (80) 97 07/30/18 04:00 101.2 98 20 134/92 (106) 96 07/30/18 00:00 100.4 90 18 123/74 (90) 96 07/29/18 21:00 Room Air 07/29/18 20:00 102.8 108 18 126/85 (99) 97 07/29/18 18:48 102.5 83 20 128/80 (96) 97 07/29/18 15:30 101.2 83 20 124/81 (95) 97 Intake and Output 07/29/18 07/30/18 19:00 07:00 Intake Total 1720.0 ml 1360.0 ml Balance 1720.0 ml 1360.0 ml Intake Oral 400 ml 500 ml IV Total 1320.0 ml 860.0 ml # Voids 4 3 # Bowel Movements 1 Laboratory Tests Test 07/30/18 05:25 White Blood Count 15.2 K/UL (4.8-10.8) H Red Blood Count 4.39 M/UL (4.20-5.40) Hemoglobin 11.4 G/DL (12.0-16.0) L Hematocrit 34.3 % (37.0-47.0) L Mean Corpuscular Volume 78 FL (80-99) L Mean Corpuscular Hemoglobin 25.9 PG (27.0-31.0) L Mean Corpuscular Hemoglobin Concent 33.2 G/DL (32.0-36.0) Red Cell Distribution Width 12.2 % (11.6-14.8) Platelet Count 171 K/UL (150-450) Mean Platelet Volume 9.2 FL (6.5-10.1) Neutrophils (%) (Auto) 84.8 % (45.0-75.0) H Lymphocytes (%) (Auto) 7.5 % (20.0-45.0) L Monocytes (%) (Auto) 7.1 % (1.0-10.0) Eosinophils (%) (Auto) 0.3 % (0.0-3.0) Basophils (%) (Auto) 0.4 % (0.0-2.0) Sodium Level 137 MMOL/L (136-145) Potassium Level 3.9 MMOL/L (3.5-5.1) Chloride Level 104 MMOL/L (98-107) Carbon Dioxide Level 25 MMOL/L (21-32) Anion Gap 8 mmol/L (5-15) Blood Urea Nitrogen 6 mg/dL (7-18) L Creatinine 0.8 MG/DL (0.55-1.30) Estimat Glomerular Filtration Rate > 60 mL/min (>60) Glucose Level 124 MG/DL (74-106) H Calcium Level 8.2 MG/DL (8.5-10.1) L Microbiology Date/Time Source Procedure Growth Status 07/30/18 12:35 Nasopharynx Influenza Types A,B Antigen (REMBERTO) - Final Complete Height (Feet): 5 Height (Inches): 8.00 Weight (Pounds): 260 Medications Current Medications Medications (Trade) Dose Ordered Sig/Kian Route PRN Reason Start Time Stop Time Status Last Admin Dose Admin Acetaminophen (Tylenol) 650 mg Q6H PRN ORAL Temp > 100.5 07/28/18 16:15 08/27/18 16:14 07/30/18 12:24 Dextrose (Dextrose 50%) 25 ml Q30M PRN IV Hypoglycemia 07/28/18 14:20 08/27/18 14:19 Dextrose (Dextrose 50%) 50 ml Q30M PRN IV Hypoglycemia 07/28/18 14:20 08/27/18 14:19 Dextrose/ Electrolytes 1,000 ml @ 100 mls/hr Q10H IV 07/28/18 15:00 08/27/18 14:59 07/30/18 06:33 Diphenhydramine HCl (Benadryl) 25 mg Q6H PRN ORAL Itching/Pruritis 07/28/18 14:20 08/27/18 14:19 Famotidine (Pepcid I.v.) 20 mg Q12HR IVP 07/28/18 21:00 08/27/18 20:59 07/30/18 10:14 Lorazepam (Ativan 2mg/ml 1ml) 0.5 mg Q4H PRN IV For Anxiety 07/28/18 14:20 08/04/18 14:19 Morphine Sulfate (Morphine Sulfate) 1 mg Q4H PRN IVP Mild Pain (Scale 1-3) 07/28/18 14:21 08/04/18 14:20 Morphine Sulfate (Morphine Sulfate) 2 mg Q4H PRN IVP Moderate Pain (Pain Scale 4-6) 07/28/18 14:21 08/04/18 14:20 07/30/18 09:15 Morphine Sulfate (Morphine Sulfate) 4 mg Q4H PRN IVP Severe Pain (Pain Scale 7-10) 07/28/18 14:22 08/04/18 14:21 07/30/18 04:42 Ondansetron HCl (Zofran) 4 mg Q6H PRN IVP Nausea & Vomiting 07/28/18 14:20 08/27/18 14:19 Piperacillin Sod/ Tazobactam Sod 3.375 gm/Sodium Chloride 110 ml @ 27.5 mls/hr EVERY 8 HOURS IVPB 07/28/18 14:30 08/02/18 14:29 07/30/18 05:35 Assessment/Plan Problem List: (1) Cholecystitis ICD Codes: K81.9 - Cholecystitis, unspecified SNOMED: 49840299 (2) Abdominal pain ICD Codes: R10.9 - Unspecified abdominal pain SNOMED: 42593426 Qualifiers: Qualified Codes: R10.11 - Right upper quadrant pain Assessment/Plan npo iv abx f/u by GI and surgery pain management symptomatic treatment dvt prophylaxis. Marce Gutierres MD Jul 30, 2018 13:36
--- NOTE | 2018-07-30 14:00 | Diagnostic Imaging Report ---
Indication: Dyspnea Comparison: None A single view chest radiograph was obtained. Findings: There is a streaky left basilar infiltrate versus atelectasis. Heart size is within normal limits. Lung volumes are low bilaterally. The bones are unremarkable. IMPRESSION: Mild left basal atelectasis versus infiltrate
--- NOTE | 2018-07-30 14:31 | General Progress Note ---
Assessment/Plan Problem List: (1) Fever ICD Codes: R50.9 - Fever, unspecified SNOMED: 225722920 (2) UTI (urinary tract infection) ICD Codes: N39.0 - Urinary tract infection, site not specified SNOMED: 27345424 (3) Abdominal pain ICD Codes: R10.9 - Unspecified abdominal pain SNOMED: 36142678 Qualifiers: Qualified Codes: R10.11 - Right upper quadrant pain (4) Cholecystitis ICD Codes: K81.9 - Cholecystitis, unspecified SNOMED: 22805072 Status: unchanged Assessment/Plan npo ivf abx tyl prn cbc bmp am Subjective Constitutional: Reports: weakness Allergies: Coded Allergies: IBUPROFEN (Verified Allergy, Unknown, 04/14/17) All Systems: reviewed and negative except above Subjective al fever and abd pain Objective Last 24 Hour Vital Signs Date Time Temp Pulse Resp B/P (MAP) Pulse Ox O2 Delivery O2 Flow Rate FiO2 07/30/18 13:05 101.5 07/30/18 12:59 101.5 07/30/18 12:00 101.1 93 19 131/91 (104) 100 07/30/18 09:45 99.6 07/30/18 08:21 Room Air 07/30/18 08:00 99.6 84 20 108/66 (80) 97 07/30/18 04:00 101.2 98 20 134/92 (106) 96 07/30/18 00:00 100.4 90 18 123/74 (90) 96 07/29/18 21:00 Room Air 07/29/18 20:00 102.8 108 18 126/85 (99) 97 07/29/18 18:48 102.5 83 20 128/80 (96) 97 07/29/18 15:30 101.2 83 20 124/81 (95) 97 Intake and Output 07/29/18 07/30/18 19:00 07:00 Intake Total 1720.0 ml 1360.0 ml Balance 1720.0 ml 1360.0 ml Intake Oral 400 ml 500 ml IV Total 1320.0 ml 860.0 ml # Voids 4 3 # Bowel Movements 1 Laboratory Tests 07/30/18 05:25: White Blood Count 15.2H, Red Blood Count 4.39, Hemoglobin 11.4L, Hematocrit 34.3L, Mean Corpuscular Volume 78L, Mean Corpuscular Hemoglobin 25.9L, Mean Corpuscular Hemoglobin Concent 33.2, Red Cell Distribution Width 12.2, Platelet Count 171, Mean Platelet Volume 9.2, Neutrophils (%) (Auto) 84.8H, Lymphocytes ( %) (Auto) 7.5L, Monocytes (%) (Auto) 7.1, Eosinophils (%) (Auto) 0.3, Basophils (%) (Auto) 0.4, Sodium Level 137, Potassium Level 3.9, Chloride Level 104, Carbon Dioxide Level 25, Anion Gap 8, Blood Urea Nitrogen 6L, Creatinine 0.8, Estimat Glomerular Filtration Rate > 60, Glucose Level 124H, Calcium Level 8.2L Height (Feet): 5 Height (Inches): 8.00 Weight (Pounds): 260 General Appearance: lethargic EENT: normal ENT inspection Neck: normal alignment Cardiovascular: normal peripheral pulses, normal rate, regular rhythm Respiratory/Chest: chest wall non-tender, lungs clear, normal breath sounds Abdomen: normal bowel sounds, non tender, soft Extremities: normal inspection Edema: no edema noted Arm (L), no edema noted Arm (R), no edema noted Leg (L), no edema noted Leg (R), no edema noted Pedal (L), no edema noted Pedal (R), no edema noted Generalized Neurologic: responsive, motor weakness Skin: normal pigmentation, warm/dry Scott Wood DO Jul 30, 2018 14:31
--- NOTE | 2018-07-30 15:18 | General Surgery Progress Note ---
General Surgery-Progress Note Subjective Additional Comments febrile, leukocytosis. +HIDA. RUQ pain Objective Last 24 Hour Vital Signs Date Time Temp Pulse Resp B/P (MAP) Pulse Ox O2 Delivery O2 Flow Rate FiO2 07/30/18 13:05 101.5 07/30/18 12:59 101.5 07/30/18 12:00 101.1 93 19 131/91 (104) 100 07/30/18 09:45 99.6 07/30/18 08:21 Room Air 07/30/18 08:00 99.6 84 20 108/66 (80) 97 07/30/18 04:00 101.2 98 20 134/92 (106) 96 07/30/18 00:00 100.4 90 18 123/74 (90) 96 07/29/18 21:00 Room Air 07/29/18 20:00 102.8 108 18 126/85 (99) 97 07/29/18 18:48 102.5 83 20 128/80 (96) 97 07/29/18 15:30 101.2 83 20 124/81 (95) 97 I&O Intake and Output 07/29/18 07/30/18 19:00 07:00 Intake Total 1720.0 ml 1360.0 ml Balance 1720.0 ml 1360.0 ml Intake Oral 400 ml 500 ml IV Total 1320.0 ml 860.0 ml # Voids 4 3 # Bowel Movements 1 Cardiovascular: RSR Respiratory: clear Abdomen: soft, tenderness, present bowel sounds Extremities: no cyanosis Laboratory Tests Test 07/30/18 05:25 White Blood Count 15.2 K/UL (4.8-10.8) H Red Blood Count 4.39 M/UL (4.20-5.40) Hemoglobin 11.4 G/DL (12.0-16.0) L Hematocrit 34.3 % (37.0-47.0) L Mean Corpuscular Volume 78 FL (80-99) L Mean Corpuscular Hemoglobin 25.9 PG (27.0-31.0) L Mean Corpuscular Hemoglobin Concent 33.2 G/DL (32.0-36.0) Red Cell Distribution Width 12.2 % (11.6-14.8) Platelet Count 171 K/UL (150-450) Mean Platelet Volume 9.2 FL (6.5-10.1) Neutrophils (%) (Auto) 84.8 % (45.0-75.0) H Lymphocytes (%) (Auto) 7.5 % (20.0-45.0) L Monocytes (%) (Auto) 7.1 % (1.0-10.0) Eosinophils (%) (Auto) 0.3 % (0.0-3.0) Basophils (%) (Auto) 0.4 % (0.0-2.0) Sodium Level 137 MMOL/L (136-145) Potassium Level 3.9 MMOL/L (3.5-5.1) Chloride Level 104 MMOL/L (98-107) Carbon Dioxide Level 25 MMOL/L (21-32) Anion Gap 8 mmol/L (5-15) Blood Urea Nitrogen 6 mg/dL (7-18) L Creatinine 0.8 MG/DL (0.55-1.30) Estimat Glomerular Filtration Rate > 60 mL/min (>60) Glucose Level 124 MG/DL (74-106) H Calcium Level 8.2 MG/DL (8.5-10.1) L Plan Problems: (1) Abdominal pain Assessment & Plan: likely acute cholecystitis based on history and exam CT noted US noted labs noted febrile/leukocytosis RUQ tender +HIDA NPO p MN IV fluids IV Abx thank you will follow with Bran [facility]ides Jul 30, 2018 15:18
[2018-07-30] MEDS ORDERED: Tubing IV Secondary IV ONE (15:42)
[2018-07-30] MEDS ORDERED: NS 275ml ONE (15:42)
[2018-07-30 16:00] VITALS: BP 119/79
[2018-07-30 19:57] VITALS: BP 127/77
[2018-07-31] VITALS (16 sets, daily range): BP systolic 105–120; BP diastolic 55–78
[2018-07-31] MEDS: D5NS w/KCl 40mEq 1000ml 1,000 ML IV SCH ×4 (02:58→23:00)
[2018-07-31] MEDS: Morphine Sulfate 4mg/ml Inj (IV/IM USE ONLY) IVP PRN ×4 (02:59→22:09)
[2018-07-31] MEDS: Piperacillin/Tazobactam 3.375 GM in NS 110 ML IVPB SCH ×3 (06:08→22:08)
[2018-07-31 06:55] LABS: ANION GAP 7 mmol/L (5-15); BLOOD UREA NITROGEN 7 mg/dL (7-18); CALCIUM 8.5 MG/DL (8.5-10.1); CARBON DIOXIDE 26 MMOL/L (21-32); CHLORIDE 105 MMOL/L (98-107); CREATININE 0.9 MG/DL (0.55-1.30); POTASSIUM 4.3 MMOL/L (3.5-5.1); SODIUM 138 MMOL/L (136-145)
[2018-07-31 07:16] LABS: BASOPHILS % (AUTO) 0.5 % (0.0-2.0); EOSINOPHILS % (AUTO) 1.1 % (0.0-3.0); HEMATOCRIT 34.4 % (37.0-47.0); HEMOGLOBIN 11.3 G/DL (12.0-16.0); LYMPHOCYTES % (AUTO) 17.5 % (20.0-45.0); MEAN CORPUSCULAR VOLUME 78 FL (80-99); MONOCYTES % (AUTO) 5.8 % (1.0-10.0); NEUTROPHILS % (AUTO) 75.1 % (45.0-75.0); PLATELET COUNT 185 K/UL (150-450); RED BLOOD COUNT 4.41 M/UL (4.20-5.40); RED CELL DISTRIBUTION WIDTH 12.1 % (11.6-14.8); WHITE BLOOD COUNT 10.5 K/UL (4.8-10.8)
[2018-07-31] MEDS ORDERED: Bisacodyl EC 5mg tab ORAL SCH (09:00)
[2018-07-31] MEDS ORDERED: Miralax 17gm pkt ORAL SCH (09:00)
[2018-07-31] MEDS ORDERED: Docusate 100mg cap ORAL SCH (09:00)
--- NOTE | 2018-07-31 09:55 | Infectious Diseases Prog Note ---
Assessment/Plan Assessment/Plan ASSESSMENT: The patient is a 27-year-old female with: Sepsis, improving- 2ry to acute cholecystitis -u/a neg -Bcx NTD Fever, onging -influenza sc neg -CXR: Mild left basal atelectasis versus infiltrate Leukocytosis, SP -HIDA scan: Positive study showing cystic duct obstruction. Findings consistent with acute cholecystitis -Abd US: No acute findings. No sonographic evidence of cholelithiasis. Normal caliber of the common bile duct on this exam. Hepatomegaly. Diffusely echogenic liver suggests fatty infiltration. -CT abd/p: Probable acute calculous cholecystitis; additional mildly dilated CBD, without obvious obstructing stone or mass. If further imaging evaluation is desired, suggest biliary ultrasound and/or abdominal MRI/MRCP. PLAN: 1. We will continue the patient on IV Zosyn #4/7 -prior to discharge will switch to PO Cipro and Flagyl 2. Monitor CBC. 3. BMP. 4. Monitor cultures (blood). 5. For Sx today 6. Aspiration precautions Discussed with RN Subjective Allergies: Coded Allergies: IBUPROFEN (Verified Allergy, Unknown, 04/14/17) Subjective Tm 101.3 leukocytosis resolved Bcx NTD for sx today Objective Vital Signs Last 24 Hour Vital Signs Date Time Temp Pulse Resp B/P (MAP) Pulse Ox O2 Delivery O2 Flow Rate FiO2 07/31/18 09:37 101.3 07/31/18 08:00 100.6 85 19 118/73 (88) 96 07/31/18 07:57 99.9 07/31/18 07:51 Room Air 07/31/18 04:00 99.9 79 14 111/73 (86) 96 07/31/18 00:00 99.1 78 18 111/69 (83) 97 07/30/18 21:30 100.9 07/30/18 21:00 Room Air 07/30/18 19:57 101.0 91 19 127/77 (94) 100 07/30/18 16:00 99.6 65 18 119/79 (92) 94 07/30/18 12:59 101.5 07/30/18 12:00 101.1 93 19 131/91 (104) 100 Height (Feet): 5 Height (Inches): 8.00 Weight (Pounds): 260 Objective HEENT: No pale conjunctivae. No icterus. NECK: No lymphadenopathy. CHEST: Clear. HEART: S1 and S2. ABDOMEN: The patient has right upper quadrant tenderness. Rao sign positive. Bowel sounds present. EXTREMITIES: No cyanosis at this time. NEUROLOGIC: Awake and alert. SKIN: No rash. Microbiology Date/Time Source Procedure Growth Status 07/29/18 20:00 Blood Blood Culture - Preliminary NO GROWTH AFTER 24 HOURS Resulted 07/29/18 19:50 Blood Blood Culture - Preliminary NO GROWTH AFTER 24 HOURS Resulted 07/28/18 15:00 Blood Blood Culture - Preliminary NO GROWTH AFTER 48 HOURS Resulted 07/28/18 15:00 Blood Blood Culture - Preliminary NO GROWTH AFTER 48 HOURS Resulted 07/30/18 12:35 Nasopharynx Influenza Types A,B Antigen (REMBERTO) - Final Complete Laboratory Tests Test 07/31/18 05:20 White Blood Count 10.5 K/UL (4.8-10.8) Red Blood Count 4.41 M/UL (4.20-5.40) Hemoglobin 11.3 G/DL (12.0-16.0) L Hematocrit 34.4 % (37.0-47.0) L Mean Corpuscular Volume 78 FL (80-99) L Mean Corpuscular Hemoglobin 25.6 PG (27.0-31.0) L Mean Corpuscular Hemoglobin Concent 32.8 G/DL (32.0-36.0) Red Cell Distribution Width 12.1 % (11.6-14.8) Platelet Count 185 K/UL (150-450) Mean Platelet Volume 8.4 FL (6.5-10.1) Neutrophils (%) (Auto) 75.1 % (45.0-75.0) H Lymphocytes (%) (Auto) 17.5 % (20.0-45.0) L Monocytes (%) (Auto) 5.8 % (1.0-10.0) Eosinophils (%) (Auto) 1.1 % (0.0-3.0) Basophils (%) (Auto) 0.5 % (0.0-2.0) Sodium Level 138 MMOL/L (136-145) Potassium Level 4.3 MMOL/L (3.5-5.1) Chloride Level 105 MMOL/L (98-107) Carbon Dioxide Level 26 MMOL/L (21-32) Anion Gap 7 mmol/L (5-15) Blood Urea Nitrogen 7 mg/dL (7-18) Creatinine 0.9 MG/DL (0.55-1.30) Estimat Glomerular Filtration Rate > 60 mL/min (>60) Glucose Level 107 MG/DL (74-106) H Calcium Level 8.5 MG/DL (8.5-10.1) Current Medications Medications (Trade) Dose Ordered Sig/Kian Route PRN Reason Start Time Stop Time Status Last Admin Dose Admin Acetaminophen (Tylenol) 650 mg Q6H PRN ORAL Temp > 100.5 07/28/18 16:15 08/27/18 16:14 07/31/18 09:43 Dextrose (Dextrose 50%) 25 ml Q30M PRN IV Hypoglycemia 07/28/18 14:20 08/27/18 14:19 Dextrose (Dextrose 50%) 50 ml Q30M PRN IV Hypoglycemia 07/28/18 14:20 08/27/18 14:19 Dextrose/ Electrolytes 1,000 ml @ 100 mls/hr Q10H IV 07/28/18 15:00 08/27/18 14:59 07/31/18 02:58 Diphenhydramine HCl (Benadryl) 25 mg Q6H PRN ORAL Itching/Pruritis 07/28/18 14:20 08/27/18 14:19 Famotidine (Pepcid I.v.) 20 mg Q12HR IVP 07/28/18 21:00 08/27/18 20:59 07/31/18 08:37 Lorazepam (Ativan 2mg/ml 1ml) 0.5 mg Q4H PRN IV For Anxiety 07/28/18 14:20 08/04/18 14:19 Morphine Sulfate (Morphine Sulfate) 1 mg Q4H PRN IVP Mild Pain (Scale 1-3) 07/28/18 14:21 08/04/18 14:20 Morphine Sulfate (Morphine Sulfate) 2 mg Q4H PRN IVP Moderate Pain (Pain Scale 4-6) 07/28/18 14:21 08/04/18 14:20 07/30/18 09:15 Morphine Sulfate (Morphine Sulfate) 4 mg Q4H PRN IVP Severe Pain (Pain Scale 7-10) 07/28/18 14:22 08/04/18 14:21 07/31/18 07:27 Ondansetron HCl (Zofran) 4 mg Q6H PRN IVP Nausea & Vomiting 07/28/18 14:20 08/27/18 14:19 Piperacillin Sod/ Tazobactam Sod 3.375 gm/Sodium Chloride 110 ml @ 27.5 mls/hr EVERY 8 HOURS IVPB 07/28/18 14:30 08/02/18 14:29 07/31/18 06:08 Diamond Jacobson M.D. Jul 31, 2018 09:55
--- NOTE | 2018-07-31 12:06 | GI Progress Note ---
Assessment/Plan Problems: (1) Abdominal pain ICD Codes: R10.9 - Unspecified abdominal pain SNOMED: 04837964 Qualifiers: Qualified Codes: R10.11 - Right upper quadrant pain (2) Cholecystitis ICD Codes: K81.9 - Cholecystitis, unspecified SNOMED: 11812476 Status: unchanged Status Narrative Discussed with Dr. Milner. Assessment/Plan cholecystectomy today no dilated CBD or elevated LFTS hold ERCP positive HIDA, fu surg will monitor for post operative N/V The patient was seen and examined at bedside and all new and available data was reviewed in the patients chart. I agree with the above findings, impression and plan. (Patient seen earlier today. Signature stamp does not reflect patient encounter time.). - John Milner MD Subjective Gastrointestinal/Abdominal: Reports: no symptoms Objective Last 24 Hour Vital Signs Date Time Temp Pulse Resp B/P (MAP) Pulse Ox O2 Delivery O2 Flow Rate FiO2 07/31/18 10:22 100.9 07/31/18 09:37 101.3 07/31/18 08:00 100.6 85 19 118/73 (88) 96 07/31/18 07:57 99.9 07/31/18 07:51 Room Air 07/31/18 04:00 99.9 79 14 111/73 (86) 96 07/31/18 00:00 99.1 78 18 111/69 (83) 97 07/30/18 21:00 Room Air 07/30/18 19:57 101.0 91 19 127/77 (94) 100 07/30/18 16:00 99.6 65 18 119/79 (92) 94 07/30/18 12:59 101.5 Intake and Output 07/30/18 07/31/18 19:00 07:00 Intake Total 1820 ml 610 ml Balance 1820 ml 610 ml Intake Oral 650 ml IV Total 1170 ml 610 ml # Voids 2 3 Laboratory Tests Test 07/31/18 05:20 White Blood Count 10.5 K/UL (4.8-10.8) Red Blood Count 4.41 M/UL (4.20-5.40) Hemoglobin 11.3 G/DL (12.0-16.0) L Hematocrit 34.4 % (37.0-47.0) L Mean Corpuscular Volume 78 FL (80-99) L Mean Corpuscular Hemoglobin 25.6 PG (27.0-31.0) L Mean Corpuscular Hemoglobin Concent 32.8 G/DL (32.0-36.0) Red Cell Distribution Width 12.1 % (11.6-14.8) Platelet Count 185 K/UL (150-450) Mean Platelet Volume 8.4 FL (6.5-10.1) Neutrophils (%) (Auto) 75.1 % (45.0-75.0) H Lymphocytes (%) (Auto) 17.5 % (20.0-45.0) L Monocytes (%) (Auto) 5.8 % (1.0-10.0) Eosinophils (%) (Auto) 1.1 % (0.0-3.0) Basophils (%) (Auto) 0.5 % (0.0-2.0) Sodium Level 138 MMOL/L (136-145) Potassium Level 4.3 MMOL/L (3.5-5.1) Chloride Level 105 MMOL/L (98-107) Carbon Dioxide Level 26 MMOL/L (21-32) Anion Gap 7 mmol/L (5-15) Blood Urea Nitrogen 7 mg/dL (7-18) Creatinine 0.9 MG/DL (0.55-1.30) Estimat Glomerular Filtration Rate > 60 mL/min (>60) Glucose Level 107 MG/DL (74-106) H Calcium Level 8.5 MG/DL (8.5-10.1) Microbiology Date/Time Source Procedure Growth Status 07/30/18 12:35 Nasopharynx Influenza Types A,B Antigen (REMBERTO) - Final Complete Height (Feet): 5 Height (Inches): 8.00 Weight (Pounds): 260 General Appearance: WD/WN, no apparent distress, alert Cardiovascular: normal rate Respiratory/Chest: normal breath sounds, no respiratory distress Abdominal Exam: normal bowel sounds, non tender, soft Extremities: normal range of motion, non-tender Malou Salguero NP Jul 31, 2018 12:06
[2018-07-31] MEDS ORDERED: LR 1000ml ONE (13:00)
[2018-07-31] MEDS ORDERED: Bupivacaine w/Epi 0.25% 30ml Vial INJ ONE (13:19)
[2018-07-31] MEDS ORDERED: LR 1000ml 1,000 ML IVLG SCH (13:21)
--- NOTE | 2018-07-31 13:25 | Pre-Procedure Note/Attestation ---
Pre-Procedure Note/Attestation Complete Prior to Procedure Planned Procedure: not applicable Procedure Narrative: laparoscopic cholecystectomy possible open Indications for Procedure Pre-Operative Diagnosis: acute cholecystitis Attestation I attest that I discussed the nature of the procedure; its benefits; risks and complications; and alternatives (and the risks and benefits of such alternatives ), prior to the procedure, with the patient (or the patient's legal surgical sales representative). I attest that, if there was a reasonable possibility of needing a blood transfusion, the patient (or the patient's legal surgical sales representative) was given the [facility] standardized written summary, pursuant to the Rodolfo Esperanza Blood Safety Act ([place] Health and Safety Code # 1645, as amended). I attest that I re-evaluated the patient just prior to the surgery and that there has been no change in the patient's H&P, except as documented below: Bran Parmar Jul 31, 2018 13:25
--- NOTE | 2018-07-31 13:28 | Anethesia Preoperative Eval ---
Anesthesia Pre-op PMH/ROS General Date of Evaluation: Jul 31, 2018 Time of Evaluation: 13:27 Anesthesiologist: Trina ASA Score: ASA 2 Mallampati Score Class I : Soft palate, uvula, fauces, pillars visible Class II: Soft palate, uvula, fauces visible Class III: Soft palate, base of uvula visible Class IV: Only hard plate visible Mallampati Classification: Class II Surgeon: Ghulam Diagnosis: Cholecystitis Surgical Procedure: Laparoscopic Anesthesia History: none Family History: no anesthesia problems Allergies: Coded Allergies: IBUPROFEN (Verified Allergy, Unknown, 04/14/17) Medications: see eMAR Patient NPO?: Yes NPO Date: Jul 30, 2018 NPO Time: 0000 Past Medical History Hematology/Immune: Reports: anemia Other: obesity - BMI 42 Anesthesia Pre-op Phys. Exam Physician Exam Last Vital Signs Date Time Temp Pulse Resp B/P (MAP) Pulse Ox O2 Delivery O2 Flow Rate FiO2 07/31/18 12:00 99.7 74 18 107/70 (82) 97 07/31/18 07:51 Room Air Constitutional: NAD Neurologic: CN 2-12 intact Cardiovascular: RRR Respiratory: CTA Gastrointestinal: S/NT/ND Airway Exam Mallampati Score: Class II MO: full ROM: full Teeth: intact Anesthesia Pre-op A/P Labs Hematology Test 07/31/18 05:20 White Blood Count 10.5 K/UL (4.8-10.8) Red Blood Count 4.41 M/UL (4.20-5.40) Hemoglobin 11.3 G/DL (12.0-16.0) L Hematocrit 34.4 % (37.0-47.0) L Mean Corpuscular Volume 78 FL (80-99) L Mean Corpuscular Hemoglobin 25.6 PG (27.0-31.0) L Mean Corpuscular Hemoglobin Concent 32.8 G/DL (32.0-36.0) Red Cell Distribution Width 12.1 % (11.6-14.8) Platelet Count 185 K/UL (150-450) Mean Platelet Volume 8.4 FL (6.5-10.1) Neutrophils (%) (Auto) 75.1 % (45.0-75.0) H Lymphocytes (%) (Auto) 17.5 % (20.0-45.0) L Monocytes (%) (Auto) 5.8 % (1.0-10.0) Eosinophils (%) (Auto) 1.1 % (0.0-3.0) Basophils (%) (Auto) 0.5 % (0.0-2.0) Chemistry Test 07/31/18 05:20 Sodium Level 138 MMOL/L (136-145) Potassium Level 4.3 MMOL/L (3.5-5.1) Chloride Level 105 MMOL/L (98-107) Carbon Dioxide Level 26 MMOL/L (21-32) Anion Gap 7 mmol/L (5-15) Blood Urea Nitrogen 7 mg/dL (7-18) Creatinine 0.9 MG/DL (0.55-1.30) Estimat Glomerular Filtration Rate > 60 mL/min (>60) Glucose Level 107 MG/DL (74-106) H Calcium Level 8.5 MG/DL (8.5-10.1) Risk Assessment & Plan Assessment: ASA 2 Plan: GA, SED, GlideScope GO Status Change Before Surgery: No Pre-Antibiotics Dru Grams Ancef IV Given Within 1 Hr of Incision: Yes Time Given: 13:46 Chuck Mena MD Jul 31, 2018 13:28
[2018-07-31] MEDS ORDERED: Propofol 200mg/20ml IV ONE (13:29)
[2018-07-31] MEDS ORDERED: Dexamethasone 4mg/ml vial ONE (13:29)
[2018-07-31] MEDS ORDERED: Lidocaine 1% MPF 10mg/ml 5ml ONE (13:29)
[2018-07-31] MEDS ORDERED: Metoclopramide 10mg/2ml Inj IVP PRN (13:30)
[2018-07-31] MEDS ORDERED: fentaNYL 100 mcg/2 mL IV PRN (13:30)
[2018-07-31] MEDS ORDERED: Meperidine 50mg/ml Inj(FOR RIGORS ONLY) IVP PRN (13:30)
[2018-07-31] MEDS ORDERED: DiphenhydrAMINE 50mg/ml Inj IVP PRN (13:30)
[2018-07-31] MEDS ORDERED: Norco 5mg/325mg tab ORAL PRN (13:30)
[2018-07-31] MEDS ORDERED: Midazolam 2mg/2ml Inj IVP PRN (13:30)
[2018-07-31] MEDS ORDERED: Acetaminophen (Non formulary) 100 ML IV ONE (13:30)
[2018-07-31] MEDS ORDERED: LORazepam Inj 2mg/ml 1ml IV PRN (13:30)
[2018-07-31] MEDS ORDERED: HYDROcodone/Acetamin 7.5/325 tab ORAL PRN (13:30)
[2018-07-31] MEDS ORDERED: Hydromorphone 0.5mg/0.5ml inj IVP PRN (13:30)
[2018-07-31] MEDS ORDERED: Atropine Sulfate 0.4mg/ml inj IVP PRN (13:30)
[2018-07-31] MEDS ORDERED: oxyCODONE HCL/Acetaminophen 5/325mg ORAL PRN (13:30)
--- NOTE | 2018-07-31 14:06 | Immediate Post-Op Evaluation ---
Immediate Post-Op Evalulation Immediate Post-Op Evalulation Procedure: Laparoscopic Cholecystectomy Date of Evaluation: Jul 31, 2018 Time of Evaluation: 15:50 IV Fluids: 700 LR Blood Products: 0 Estimated Blood Loss: 50 Urinary Output: 0 Blood Pressure Systolic: 105 Blood Pressure Diastolic: 95 Pulse Rate: 69 Respiratory Rate: 16 O2 Sat by Pulse Oximetry: 96 Temperature (Fahrenheit): 98.4 Pain Score (1-10): 2 Nausea: No Vomiting: No Complications 0 Patient Status: awake, reacts, patent, extubated, none Hydration Status: adequate Dru Grams Ancef IV Given Within 1 Hr of Incision: Yes Time Given: 13:46 Chuck Mena MD Jul 31, 2018 14:06
--- NOTE | 2018-07-31 15:19 | General Progress Note ---
Assessment/Plan Problem List: (1) Fever ICD Codes: R50.9 - Fever, unspecified SNOMED: 520000574 (2) UTI (urinary tract infection) ICD Codes: N39.0 - Urinary tract infection, site not specified SNOMED: 21995825 (3) Abdominal pain ICD Codes: R10.9 - Unspecified abdominal pain SNOMED: 36200762 Qualifiers: Qualified Codes: R10.11 - Right upper quadrant pain (4) Cholecystitis ICD Codes: K81.9 - Cholecystitis, unspecified SNOMED: 86977771 Status: stable, progressing Assessment/Plan npo ivf abx tyl prn sx cbc bmp am Subjective Constitutional: Reports: weakness Allergies: Coded Allergies: IBUPROFEN (Verified Allergy, Unknown, 04/14/17) All Systems: reviewed and negative except above Subjective calm awaitng sx Objective Last 24 Hour Vital Signs Date Time Temp Pulse Resp B/P (MAP) Pulse Ox O2 Delivery O2 Flow Rate FiO2 07/31/18 12:00 99.7 74 18 107/70 (82) 97 07/31/18 10:22 100.9 07/31/18 09:37 101.3 07/31/18 08:00 100.6 85 19 118/73 (88) 96 07/31/18 07:57 99.9 07/31/18 07:51 Room Air 07/31/18 04:00 99.9 79 14 111/73 (86) 96 07/31/18 00:00 99.1 78 18 111/69 (83) 97 07/30/18 21:00 Room Air 07/30/18 19:57 101.0 91 19 127/77 (94) 100 07/30/18 16:00 99.6 65 18 119/79 (92) 94 Intake and Output 07/30/18 07/31/18 19:00 07:00 Intake Total 1820 ml 610 ml Balance 1820 ml 610 ml Intake Oral 650 ml IV Total 1170 ml 610 ml # Voids 2 3 Laboratory Tests 07/31/18 05:20: White Blood Count 10.5, Red Blood Count 4.41, Hemoglobin 11.3L, Hematocrit 34.4L , Mean Corpuscular Volume 78L, Mean Corpuscular Hemoglobin 25.6L, Mean Corpuscular Hemoglobin Concent 32.8, Red Cell Distribution Width 12.1, Platelet Count 185, Mean Platelet Volume 8.4, Neutrophils (%) (Auto) 75.1H, Lymphocytes ( %) (Auto) 17.5L, Monocytes (%) (Auto) 5.8, Eosinophils (%) (Auto) 1.1, Basophils (%) (Auto) 0.5, Sodium Level 138, Potassium Level 4.3, Chloride Level 105, Carbon Dioxide Level 26, Anion Gap 7, Blood Urea Nitrogen 7, Creatinine 0.9 , Estimat Glomerular Filtration Rate > 60, Glucose Level 107H, Calcium Level 8.5 Height (Feet): 5 Height (Inches): 8.00 Weight (Pounds): 260 General Appearance: lethargic EENT: normal ENT inspection Neck: non-tender, normal alignment Cardiovascular: normal peripheral pulses, normal rate, regular rhythm Respiratory/Chest: chest wall non-tender, lungs clear, normal breath sounds Abdomen: normal bowel sounds, non tender, soft Extremities: normal inspection Edema: no edema noted Arm (L), no edema noted Arm (R), no edema noted Leg (L), no edema noted Leg (R), no edema noted Pedal (L), no edema noted Pedal (R), no edema noted Generalized Neurologic: responsive, motor weakness Skin: normal pigmentation, warm/dry Scott Wood DO Jul 31, 2018 15:19
[2018-07-31] MEDS ORDERED: fentaNYL 100 mcg/2 mL IV ONE (15:20)
--- NOTE | 2018-07-31 17:27 | Brief Operative Note ---
Immediate Post Operative Note Operative Note Pre-op Diagnosis: acute cholecystitis Procedure: lap joann Post-op Diagnosis: same as pre-op Surgeon: tyler Anesthesiologist: asha Anesthesia: general Specimen: yes Complications: none Condition: stable Fluids: see records Estimated Blood Loss: volume - 25 Drains: none Implant(s) used?: No Bran Parmar Jul 31, 2018 17:27
[2018-07-31] MEDS ORDERED: Morphine Sulfate 2mg/ml Inj IVP PRN ×2 (17:30→18:00)
[2018-08-01] VITALS: BP 105/64
[2018-08-01] MEDS: Morphine Sulfate 4mg/ml Inj (IV/IM USE ONLY) IVP PRN ×3 (02:53→19:06)
[2018-08-01 04:00] VITALS: BP 105/61
[2018-08-01] MEDS: Piperacillin/Tazobactam 3.375 GM in NS 110 ML IVPB SCH ×2 (06:36→14:46)
[2018-08-01 06:47] LABS: HEMATOCRIT 34.3 % (37.0-47.0); MEAN CORPUSCULAR VOLUME 78 FL (80-99); PLATELET COUNT 210 K/UL (150-450); RED BLOOD COUNT 4.37 M/UL (4.20-5.40); RED CELL DISTRIBUTION WIDTH 12.4 % (11.6-14.8); WHITE BLOOD COUNT 12.6 K/UL (4.8-10.8)
[2018-08-01 06:58] LABS: ANION GAP 8 mmol/L (5-15); BLOOD UREA NITROGEN 8 mg/dL (7-18); CALCIUM 8.5 MG/DL (8.5-10.1); CARBON DIOXIDE 28 MMOL/L (21-32); CHLORIDE 103 MMOL/L (98-107); CREATININE 0.8 MG/DL (0.55-1.30); POTASSIUM 4.1 MMOL/L (3.5-5.1); SODIUM 138 MMOL/L (136-145)
[2018-08-01 08:15] VITALS: BP 119/72
[2018-08-01] MEDS: D5NS w/KCl 40mEq 1000ml 1,000 ML IV SCH ×2 (08:59→19:05)
--- NOTE | 2018-08-01 09:49 | 48 Hour Post Anesthesia Eval ---
Post Anesthesia Evaluation Procedure: Laparoscopic Cholecystectomy Date of Evaluation: Aug 01, 2018 Time of Evaluation: 09:48 Blood Pressure Systolic: 124 0: 76 Pulse Rate: 68 Respiratory Rate: 20 Temperature (Fahrenheit): 97.8 O2 Sat by Pulse Oximetry: 98 Airway: patent Nausea: No Vomiting: No Pain Intensity: 3 Hydration Status: adequate Cardiopulmonary Status: stable Mental Status/LOC: patient returned to baseline Follow-up Care/Observations: n/a Post-Anesthesia Complications: none Follow-up care needed: N/A Eric Mccoy MD Aug 01, 2018 09:49
[2018-08-01 12:00] VITALS: BP 117/78
--- NOTE | 2018-08-01 12:28 | GI Progress Note ---
Assessment/Plan Problems: (1) Abdominal pain ICD Codes: R10.9 - Unspecified abdominal pain SNOMED: 73844446 Qualifiers: Qualified Codes: R10.11 - Right upper quadrant pain (2) Cholecystitis ICD Codes: K81.9 - Cholecystitis, unspecified SNOMED: 05284695 Status: doing well, stable Status Narrative Discussed with Dr. Milner. Assessment/Plan s/p cholecystectomy no N/V diet advanced pain mgmt surgical recommendations okay for DC per GI standpoint The patient was seen and examined at bedside and all new and available data was reviewed in the patients chart. I agree with the above findings, impression and plan. (Patient seen earlier today. Signature stamp does not reflect patient encounter time.). - John Milner MD Subjective Gastrointestinal/Abdominal: Reports: no symptoms Objective Last 24 Hour Vital Signs Date Time Temp Pulse Resp B/P (MAP) Pulse Ox O2 Delivery O2 Flow Rate FiO2 08/01/18 09:49 68 20 98 08/01/18 09:00 Room Air 08/01/18 08:15 98.6 77 16 119/72 (88) 95 77 08/01/18 04:00 98.7 67 19 105/61 (76) 95 08/01/18 00:00 98.9 67 19 105/64 (78) 95 07/31/18 21:00 Room Air 07/31/18 20:00 98.2 74 17 120/78 (92) 97 07/31/18 18:30 98.5 70 18 114/76 (89) 98 07/31/18 18:19 98.5 07/31/18 17:06 98.2 70 16 115/69 99 Nasal Cannula 3 07/31/18 17:00 98.9 70 18 114/75 (88) 99 07/31/18 16:45 71 16 114/73 97 Nasal Cannula 3 07/31/18 16:36 70 16 108/68 97 Nasal Cannula 3 07/31/18 16:22 65 16 114/66 97 Simple Mask 8 07/31/18 16:13 64 16 109/69 97 Simple Mask 8 07/31/18 15:49 56 16 108/68 97 Simple Mask 8 07/31/18 15:44 61 16 112/65 97 Simple Mask 8 07/31/18 15:39 98.5 68 16 105/55 97 Simple Mask 8 07/31/18 15:39 69 16 96 Intake and Output 07/31/18 08/01/18 19:00 07:00 Intake Total 1300 ml 1500 ml Output Total 50 ml Balance 1250 ml 1500 ml Intake Oral 400 ml IV Total 1300 ml 1100 ml Output Estimated Blood Loss 50 ml # Voids 1 Laboratory Tests Test 08/01/18 06:08 White Blood Count 12.6 K/UL (4.8-10.8) H Red Blood Count 4.37 M/UL (4.20-5.40) Hemoglobin 11.0 G/DL (12.0-16.0) L Hematocrit 34.3 % (37.0-47.0) L Mean Corpuscular Volume 78 FL (80-99) L Mean Corpuscular Hemoglobin 25.1 PG (27.0-31.0) L Mean Corpuscular Hemoglobin Concent 32.0 G/DL (32.0-36.0) Red Cell Distribution Width 12.4 % (11.6-14.8) Platelet Count 210 K/UL (150-450) Mean Platelet Volume 8.2 FL (6.5-10.1) Neutrophils (%) (Auto) % (45.0-75.0) Lymphocytes (%) (Auto) % (20.0-45.0) Monocytes (%) (Auto) % (1.0-10.0) Eosinophils (%) (Auto) % (0.0-3.0) Basophils (%) (Auto) % (0.0-2.0) Differential Total Cells Counted 100 Neutrophils % (Manual) 86 % (45-75) H Lymphocytes % (Manual) 10 % (20-45) L Monocytes % (Manual) 4 % (1-10) Eosinophils % (Manual) 0 % (0-3) Basophils % (Manual) 0 % (0-2) Band Neutrophils 0 % (0-8) Platelet Estimate Adequate Platelet Morphology Normal Hypochromasia 1+ Sodium Level 138 MMOL/L (136-145) Potassium Level 4.1 MMOL/L (3.5-5.1) Chloride Level 103 MMOL/L (98-107) Carbon Dioxide Level 28 MMOL/L (21-32) Anion Gap 8 mmol/L (5-15) Blood Urea Nitrogen 8 mg/dL (7-18) Creatinine 0.8 MG/DL (0.55-1.30) Estimat Glomerular Filtration Rate > 60 mL/min (>60) Glucose Level 121 MG/DL (74-106) H Calcium Level 8.5 MG/DL (8.5-10.1) Height (Feet): 5 Height (Inches): 8.00 Weight (Pounds): 260 General Appearance: WD/WN, no apparent distress, alert Cardiovascular: normal rate Respiratory/Chest: normal breath sounds, no respiratory distress Abdominal Exam: normal bowel sounds, non tender, soft Extremities: normal range of motion, non-tender Malou Salguero NP Aug 01, 2018 12:28
--- NOTE | 2018-08-01 12:30 | General Progress Note ---
Assessment/Plan Problem List: (1) Fever ICD Codes: R50.9 - Fever, unspecified SNOMED: 502815666 (2) UTI (urinary tract infection) ICD Codes: N39.0 - Urinary tract infection, site not specified SNOMED: 28710878 (3) Abdominal pain ICD Codes: R10.9 - Unspecified abdominal pain SNOMED: 26795459 Qualifiers: Qualified Codes: R10.11 - Right upper quadrant pain (4) Cholecystitis ICD Codes: K81.9 - Cholecystitis, unspecified SNOMED: 26304193 Status: stable, progressing Assessment/Plan npo ivf abx tyl prn sx cbc bmp am dc plan if pass gas Subjective Constitutional: Reports: weakness Allergies: Coded Allergies: IBUPROFEN (Verified Allergy, Unknown, 04/14/17) All Systems: reviewed and negative except above Subjective calm sl nausea no pass gas Objective Last 24 Hour Vital Signs Date Time Temp Pulse Resp B/P (MAP) Pulse Ox O2 Delivery O2 Flow Rate FiO2 08/01/18 09:49 68 20 98 08/01/18 09:00 Room Air 08/01/18 08:15 98.6 77 16 119/72 (88) 95 77 08/01/18 04:00 98.7 67 19 105/61 (76) 95 08/01/18 00:00 98.9 67 19 105/64 (78) 95 07/31/18 21:00 Room Air 07/31/18 20:00 98.2 74 17 120/78 (92) 97 07/31/18 18:30 98.5 70 18 114/76 (89) 98 07/31/18 18:19 98.5 07/31/18 17:06 98.2 70 16 115/69 99 Nasal Cannula 3 07/31/18 17:00 98.9 70 18 114/75 (88) 99 07/31/18 16:45 71 16 114/73 97 Nasal Cannula 3 07/31/18 16:36 70 16 108/68 97 Nasal Cannula 3 07/31/18 16:22 65 16 114/66 97 Simple Mask 8 07/31/18 16:13 64 16 109/69 97 Simple Mask 8 07/31/18 15:49 56 16 108/68 97 Simple Mask 8 07/31/18 15:44 61 16 112/65 97 Simple Mask 8 07/31/18 15:39 98.5 68 16 105/55 97 Simple Mask 8 07/31/18 15:39 69 16 96 Intake and Output 07/31/18 08/01/18 19:00 07:00 Intake Total 1300 ml 1500 ml Output Total 50 ml Balance 1250 ml 1500 ml Intake Oral 400 ml IV Total 1300 ml 1100 ml Output Estimated Blood Loss 50 ml # Voids 1 Laboratory Tests 08/01/18 06:08: White Blood Count 12.6H, Red Blood Count 4.37, Hemoglobin 11.0L, Hematocrit 34.3L, Mean Corpuscular Volume 78L, Mean Corpuscular Hemoglobin 25.1L, Mean Corpuscular Hemoglobin Concent 32.0, Red Cell Distribution Width 12.4, Platelet Count 210, Mean Platelet Volume 8.2, Neutrophils (%) (Auto) , Lymphocytes (%) ( Auto) , Monocytes (%) (Auto) , Eosinophils (%) (Auto) , Basophils (%) (Auto) , Differential Total Cells Counted 100, Neutrophils % (Manual) 86H, Lymphocytes % (Manual) 10L, Monocytes % (Manual) 4, Eosinophils % (Manual) 0, Basophils % ( Manual) 0, Band Neutrophils 0, Platelet Estimate Adequate, Platelet Morphology Normal, Hypochromasia 1+, Sodium Level 138, Potassium Level 4.1, Chloride Level 103, Carbon Dioxide Level 28, Anion Gap 8, Blood Urea Nitrogen 8, Creatinine 0.8 , Estimat Glomerular Filtration Rate > 60, Glucose Level 121H, Calcium Level 8.5 Height (Feet): 5 Height (Inches): 8.00 Weight (Pounds): 260 General Appearance: alert EENT: normal ENT inspection Neck: normal alignment Cardiovascular: normal peripheral pulses, normal rate, regular rhythm Respiratory/Chest: chest wall non-tender, lungs clear, normal breath sounds Abdomen: normal bowel sounds, non tender, soft Extremities: normal inspection Edema: no edema noted Arm (L), no edema noted Arm (R), no edema noted Leg (L), no edema noted Leg (R), no edema noted Pedal (L), no edema noted Pedal (R), no edema noted Generalized Neurologic: responsive, motor weakness Skin: normal pigmentation, warm/dry Scott Wood DO Aug 01, 2018 12:30
--- NOTE | 2018-08-01 15:56 | General Progress Note ---
Progress Note Progress Note Surgery: doing well. pain improved. tolerating diet. no n/v/f/c labs noted exam benign. abd soft nt/nd bs+ wounds c/d//i -diet as tolerated -okay to d/c from surgical standpoint -f/u in two weeks thank you Bran Parmar Aug 01, 2018 15:56
[2018-08-01 16:00] VITALS: BP 111/67
--- NOTE | 2018-08-01 17:23 | Infectious Diseases Prog Note ---
Assessment/Plan Assessment/Plan ASSESSMENT: The patient is a 27-year-old female with: Sepsis, improving- 2ry to acute cholecystitis -07/31 SP Lap joann -u/a neg -Bcx NTD Fever, improving -influenza sc neg -CXR: Mild left basal atelectasis versus infiltrate Leukocytosis, mild, uhdlxfiog-qqic-ye -HIDA scan: Positive study showing cystic duct obstruction. Findings consistent with acute cholecystitis -Abd US: No acute findings. No sonographic evidence of cholelithiasis. Normal caliber of the common bile duct on this exam. Hepatomegaly. Diffusely echogenic liver suggests fatty infiltration. -CT abd/p: Probable acute calculous cholecystitis; additional mildly dilated CBD, without obvious obstructing stone or mass. If further imaging evaluation is desired, suggest biliary ultrasound and/or abdominal MRI/MRCP. PLAN: 1. Switch IV Zosyn #5/6 To PO Cipro and Flagyl 2. Monitor CBC. 3. BMP. 4. Monitor cultures (blood). 5. wound care 6. Aspiration precautions Discussed with RN Subjective Allergies: Coded Allergies: IBUPROFEN (Verified Allergy, Unknown, 04/14/17) Subjective afebrile >24hrs s/p lap joann yetsrday mild leukocytosis Bcx NTD Objective Vital Signs Last 24 Hour Vital Signs Date Time Temp Pulse Resp B/P (MAP) Pulse Ox O2 Delivery O2 Flow Rate FiO2 08/01/18 12:00 99.0 81 18 117/78 (91) 95 08/01/18 09:49 68 20 98 08/01/18 09:00 Room Air 08/01/18 08:15 98.6 77 16 119/72 (88) 95 77 08/01/18 04:00 98.7 67 19 105/61 (76) 95 08/01/18 00:00 98.9 67 19 105/64 (78) 95 07/31/18 21:00 Room Air 07/31/18 20:00 98.2 74 17 120/78 (92) 97 07/31/18 18:30 98.5 70 18 114/76 (89) 98 07/31/18 18:19 98.5 Height (Feet): 5 Height (Inches): 8.00 Weight (Pounds): 260 Objective HEENT: No pale conjunctivae. No icterus. NECK: No lymphadenopathy. CHEST: Clear. HEART: S1 and S2. ABDOMEN: The patient has right upper quadrant tenderness. Rao sign positive. Bowel sounds present. EXTREMITIES: No cyanosis at this time. NEUROLOGIC: Awake and alert. SKIN: No rash. Microbiology Date/Time Source Procedure Growth Status 07/29/18 20:00 Blood Blood Culture - Preliminary NO GROWTH AFTER 48 HOURS Resulted 07/29/18 19:50 Blood Blood Culture - Preliminary NO GROWTH AFTER 48 HOURS Resulted 07/30/18 12:35 Nasopharynx Influenza Types A,B Antigen (REMBERTO) - Final Complete Laboratory Tests Test 08/01/18 06:08 White Blood Count 12.6 K/UL (4.8-10.8) H Red Blood Count 4.37 M/UL (4.20-5.40) Hemoglobin 11.0 G/DL (12.0-16.0) L Hematocrit 34.3 % (37.0-47.0) L Mean Corpuscular Volume 78 FL (80-99) L Mean Corpuscular Hemoglobin 25.1 PG (27.0-31.0) L Mean Corpuscular Hemoglobin Concent 32.0 G/DL (32.0-36.0) Red Cell Distribution Width 12.4 % (11.6-14.8) Platelet Count 210 K/UL (150-450) Mean Platelet Volume 8.2 FL (6.5-10.1) Neutrophils (%) (Auto) % (45.0-75.0) Lymphocytes (%) (Auto) % (20.0-45.0) Monocytes (%) (Auto) % (1.0-10.0) Eosinophils (%) (Auto) % (0.0-3.0) Basophils (%) (Auto) % (0.0-2.0) Differential Total Cells Counted 100 Neutrophils % (Manual) 86 % (45-75) H Lymphocytes % (Manual) 10 % (20-45) L Monocytes % (Manual) 4 % (1-10) Eosinophils % (Manual) 0 % (0-3) Basophils % (Manual) 0 % (0-2) Band Neutrophils 0 % (0-8) Platelet Estimate Adequate Platelet Morphology Normal Hypochromasia 1+ Sodium Level 138 MMOL/L (136-145) Potassium Level 4.1 MMOL/L (3.5-5.1) Chloride Level 103 MMOL/L (98-107) Carbon Dioxide Level 28 MMOL/L (21-32) Anion Gap 8 mmol/L (5-15) Blood Urea Nitrogen 8 mg/dL (7-18) Creatinine 0.8 MG/DL (0.55-1.30) Estimat Glomerular Filtration Rate > 60 mL/min (>60) Glucose Level 121 MG/DL (74-106) H Calcium Level 8.5 MG/DL (8.5-10.1) Current Medications Medications (Trade) Dose Ordered Sig/Kian Route PRN Reason Start Time Stop Time Status Last Admin Dose Admin Acetaminophen (Tylenol) 650 mg Q6H PRN ORAL Temp > 100.5 07/28/18 16:15 08/27/18 16:14 07/31/18 09:43 Dextrose (Dextrose 50%) 25 ml Q30M PRN IV Hypoglycemia 07/28/18 14:20 08/27/18 14:19 Dextrose (Dextrose 50%) 50 ml Q30M PRN IV Hypoglycemia 07/28/18 14:20 08/27/18 14:19 Dextrose/ Electrolytes 1,000 ml @ 100 mls/hr Q10H IV 07/28/18 15:00 08/27/18 14:59 08/01/18 08:59 Diphenhydramine HCl (Benadryl) 25 mg Q6H PRN ORAL Itching/Pruritis 07/28/18 14:20 08/27/18 14:19 Famotidine (Pepcid I.v.) 20 mg Q12HR IVP 07/28/18 21:00 08/01/18 23:59 08/01/18 09:00 Famotidine (Pepcid) 20 mg Q12HR ORAL 08/02/18 09:00 09/01/18 08:59 Lorazepam (Ativan 2mg/ml 1ml) 0.5 mg Q4H PRN IV For Anxiety 07/28/18 14:20 08/04/18 14:19 Morphine Sulfate (Morphine Sulfate) 1 mg Q4H PRN IVP Mild Pain (Pain Scale 1-3) 07/31/18 18:00 08/07/18 17:59 Morphine Sulfate (Morphine Sulfate) 2 mg Q4H PRN IVP Moderate Pain (Pain Scale 4-6) 07/31/18 17:30 08/07/18 17:29 Morphine Sulfate (Morphine Sulfate) 4 mg Q4H PRN IVP Severe Pain (Pain Scale 7-10) 07/31/18 18:00 08/07/18 17:59 08/01/18 14:52 Ondansetron HCl (Zofran) 4 mg Q6H PRN IVP Nausea & Vomiting 07/28/18 14:20 08/27/18 14:19 Piperacillin Sod/ Tazobactam Sod 3.375 gm/Sodium Chloride 110 ml @ 27.5 mls/hr EVERY 8 HOURS IVPB 07/28/18 14:30 08/03/18 23:59 08/01/18 14:46 Diamond Jacobson M.D. Aug 01, 2018 17:23
[2018-08-01 20:00] VITALS: BP 118/68
[2018-08-01] MEDS: metroNIDAZOLE 500mg tab ORAL SCH (21:17)
[2018-08-01] MEDS: Ciprofloxacin 500mg tab ORAL SCH (21:17)
--- NOTE | 2018-08-01 22:00 | Operative Note - Dictated ---
DATE OF OPERATION: 07/31/2018 PREOPERATIVE DIAGNOSIS: Acute cholecystitis. POSTOPERATIVE DIAGNOSIS: Acute cholecystitis. OPERATION PERFORMED: Laparoscopic cholecystectomy. ATTENDING SURGEON: Bran Parmar M.D. MECHANICAL UNIT REPAIRER: None. ANESTHESIOLOGIST: Chuck Mena M.D. ANESTHESIA: General DATA CONVERSION DEVELOPER. ESTIMATED BLOOD LOSS: 25 mL. IV FLUIDS: Please see anesthesia records. COMPLICATIONS: None. DRAINS: None. SPECIMENS: Gallbladder and stones sent to pathology for review. WOUND CLASSIFICATION: Class III. IMPLANTS: None. COUNT: Sponge and needle count correct x2. ANTIBIOTICS: The patient on scheduled IV antibiotics. INDICATIONS FOR PROCEDURE: This is a 27-year-old female who presented to the emergency department at [facility] complaining of worsening right upper quadrant abdominal pain with nausea and emesis. The patient was noted to have leukocytosis. On exam, she had focal right upper quadrant tenderness and CT scan demonstrated possible acute calculous cholecystitis. A HIDA scan was then performed and was positive showing cystic duct obstruction consistent with acute cholecystitis. The patient was initially monitored and over the subsequent days, she continued to have right upper quadrant abdominal tenderness and given these findings, surgery was indicated and recommended. Risks, benefits, and alternatives were discussed with the patient in detail, who expressed understanding and consented to surgery. OPERATIVE NOTE: The patient was taken to the operating room and placed on the operating table in supine position with bilateral arms out. All bony prominences were well padded. SCDs were placed. Preoperative timeout was taken identifying the patient, procedure, operative site, and surgical staff. No Jacques catheter was inserted given the patient voided prior to entering the operating. The patient was already on scheduled IV antibiotics. General anesthesia was induced and the patient was intubated. The abdomen was clipped, prepped, and draped in standard surgical fashion. An infraumbilical incision was made using a fresh #11 scalpel and carried down to the fascia, which was elevated and incised. Entry into the abdomen was obtained using open Jennifer technique without complication. A 12 mm linear trocar was inserted and abdomen was insufflated to 12-15 mmHg. The patient was placed in reverse Trendelenburg position with left side down. The patient noted to have significant inflammatory process in the right upper quadrant around the gallbladder with omentum being draped over the gallbladder and adhesed. Secondary trocars were placed under direct visualization beginning with a 12 mm epigastric subxiphoid port followed by two 5 mm right subcostal ports. The omental adhesions to the gallbladder were taken down and the peritoneal attachments and adhesions of the gallbladder were slowly dissected. The gallbladder was very distended and tense and could not be manipulated or grasped. Therefore, a drainage needle was placed and the gallbladder was decompressed. Once gallbladder was decompressed, the dome of the gallbladder was grasped using most lateral port and retracted over the liver. With gentle dissection, the infundibulum was identified, grasped, and retracted towards the right lower quadrant. After doing very delicate dissection, the cystic duct and artery were identified, circumferentially dissected out, and the critical view was obtained. Once this was complete, the cystic duct and artery were doubly clipped and divided. The gallbladder was taken off of the remainder of the liver attachments using electrocautery. There was dense inflammatory process identified and noted consistent with preoperative findings and the patient's current medical condition. Once gallbladder was safely removed, it was placed in endoscopic retrieval bag and removed using the umbilical port site. The abdomen was then inspected and hemostasis noted. Two pieces of Surgicel were placed in the liver bed where the gallbladder was removed. The cystic duct and artery stumps were identified and noted to be with clips in place and stable. At this time, we began the conclusion of our procedure. Secondary trocars were removed under direct visualization followed by the umbilical trocar. The abdomen was desufflated. The wounds were irrigated and cleansed and the fascia of the umbilical and epigastric 12 mm port sites were closed using [id number] Vicryl suture. The remaining skin incisions were closed using 4-0 Monocryl subcuticular interrupted sutures. Local anesthetic was infiltrated throughout the procedure. Benzoin, Steri-Strips, and dressings were applied. The patient tolerated the procedure well, was extubated, and taken to postanesthetic care unit in stable condition. Eva Bazzi JOB#: [id number] CC:
[2018-08-02] VITALS: BP 110/68
[2018-08-02 04:00] VITALS: BP 117/78
[2018-08-02] MEDS: D5NS w/KCl 40mEq 1000ml 1,000 ML IV SCH ×2 (06:45→13:35)
[2018-08-02] MEDS: metroNIDAZOLE 500mg tab ORAL SCH ×2 (06:46→13:34)
[2018-08-02] MEDS: Morphine Sulfate 4mg/ml Inj (IV/IM USE ONLY) IVP PRN ×2 (06:46→15:27)
[2018-08-02 07:40] LABS: BASOPHILS % (AUTO) 1.1 % (0.0-2.0); EOSINOPHILS % (AUTO) 1.1 % (0.0-3.0); HEMATOCRIT 30.8 % (37.0-47.0); HEMOGLOBIN 9.8 G/DL (12.0-16.0); LYMPHOCYTES % (AUTO) 30.9 % (20.0-45.0); MEAN CORPUSCULAR VOLUME 79 FL (80-99); MONOCYTES % (AUTO) 6.6 % (1.0-10.0); NEUTROPHILS % (AUTO) 60.3 % (45.0-75.0); PLATELET COUNT 193 K/UL (150-450); RED BLOOD COUNT 3.91 M/UL (4.20-5.40); RED CELL DISTRIBUTION WIDTH 12.5 % (11.6-14.8); WHITE BLOOD COUNT 7.2 K/UL (4.8-10.8)
[2018-08-02 07:44] LABS: ANION GAP 6 mmol/L (5-15); BLOOD UREA NITROGEN 8 mg/dL (7-18); CALCIUM 8.2 MG/DL (8.5-10.1); CARBON DIOXIDE 26 MMOL/L (21-32); CHLORIDE 106 MMOL/L (98-107); CREATININE 0.8 MG/DL (0.55-1.30); POTASSIUM 4.1 MMOL/L (3.5-5.1); SODIUM 138 MMOL/L (136-145)
[2018-08-02 08:00] VITALS: BP 121/81
[2018-08-02] MEDS: Ciprofloxacin 500mg tab ORAL SCH (09:19)
--- NOTE | 2018-08-02 10:38 | GI Progress Note ---
Assessment/Plan Problems: (1) Abdominal pain ICD Codes: R10.9 - Unspecified abdominal pain SNOMED: 86299069 Qualifiers: Qualified Codes: R10.11 - Right upper quadrant pain (2) Cholecystitis ICD Codes: K81.9 - Cholecystitis, unspecified SNOMED: 30661632 Status: stable Status Narrative Discussed with Dr. Milner Assessment/Plan s/p cholecystectomy no N/V diet advanced pain mgmt surgical recommendations okay for DC per GI standpoint The patient was seen and examined at bedside and all new and available data was reviewed in the patients chart. I agree with the above findings, impression and plan. (Patient seen earlier today. Signature stamp does not reflect patient encounter time.). - John Milner MD Subjective Subjective Denies abdominal pain Tolerating diet Ambulating around unit Objective Last 24 Hour Vital Signs Date Time Temp Pulse Resp B/P (MAP) Pulse Ox O2 Delivery O2 Flow Rate FiO2 08/02/18 08:00 98.8 88 20 121/81 (94) 97 08/02/18 04:00 98.5 84 20 117/78 (91) 97 08/02/18 00:00 98.9 80 19 110/68 (82) 95 08/01/18 21:00 Room Air 08/01/18 20:00 99.2 83 19 118/68 (85) 95 08/01/18 16:00 99.1 75 18 111/67 (82) 95 08/01/18 12:00 99.0 81 18 117/78 (91) 95 Intake and Output 08/01/18 08/02/18 19:00 07:00 Intake Total 600 ml 480 ml Balance 600 ml 480 ml Intake Oral 600 ml 480 ml # Voids 4 3 Laboratory Tests Test 08/02/18 07:05 White Blood Count 7.2 K/UL (4.8-10.8) Red Blood Count 3.91 M/UL (4.20-5.40) L Hemoglobin 9.8 G/DL (12.0-16.0) L Hematocrit 30.8 % (37.0-47.0) L Mean Corpuscular Volume 79 FL (80-99) L Mean Corpuscular Hemoglobin 25.1 PG (27.0-31.0) L Mean Corpuscular Hemoglobin Concent 31.9 G/DL (32.0-36.0) L Red Cell Distribution Width 12.5 % (11.6-14.8) Platelet Count 193 K/UL (150-450) Mean Platelet Volume 7.9 FL (6.5-10.1) Neutrophils (%) (Auto) 60.3 % (45.0-75.0) Lymphocytes (%) (Auto) 30.9 % (20.0-45.0) Monocytes (%) (Auto) 6.6 % (1.0-10.0) Eosinophils (%) (Auto) 1.1 % (0.0-3.0) Basophils (%) (Auto) 1.1 % (0.0-2.0) Sodium Level 138 MMOL/L (136-145) Potassium Level 4.1 MMOL/L (3.5-5.1) Chloride Level 106 MMOL/L (98-107) Carbon Dioxide Level 26 MMOL/L (21-32) Anion Gap 6 mmol/L (5-15) Blood Urea Nitrogen 8 mg/dL (7-18) Creatinine 0.8 MG/DL (0.55-1.30) Estimat Glomerular Filtration Rate > 60 mL/min (>60) Glucose Level 100 MG/DL (74-106) Calcium Level 8.2 MG/DL (8.5-10.1) L Height (Feet): 5 Height (Inches): 8.00 Weight (Pounds): 260 General Appearance: WD/WN, no apparent distress, alert Cardiovascular: normal rate Respiratory/Chest: normal breath sounds, no respiratory distress Abdominal Exam: normal bowel sounds, non tender, soft Extremities: normal range of motion, non-tender Malou Salguero NP Aug 02, 2018 10:38
--- NOTE | 2018-08-02 11:15 | Infectious Diseases Prog Note ---
Assessment/Plan Assessment/Plan ASSESSMENT: The patient is a 27-year-old female with: Sepsis, SP- 2ry to acute cholecystitis -07/31 SP Lap joann -u/a neg -Bcx NTD Fever, improving -influenza sc neg -CXR: Mild left basal atelectasis versus infiltrate Leukocytosis, mild, aywxkmyjo-laij-ls-resolved -HIDA scan: Positive study showing cystic duct obstruction. Findings consistent with acute cholecystitis -Abd US: No acute findings. No sonographic evidence of cholelithiasis. Normal caliber of the common bile duct on this exam. Hepatomegaly. Diffusely echogenic liver suggests fatty infiltration. -CT abd/p: Probable acute calculous cholecystitis; additional mildly dilated CBD, without obvious obstructing stone or mass. If further imaging evaluation is desired, suggest biliary ultrasound and/or abdominal MRI/MRCP. PLAN: 1. Continue PO Cipro and Flagyl abx d#6/ -08/01 SP Zosyn #5 2. Monitor CBC. 3. BMP. 4. Monitor cultures (blood). 5. wound care 6. Aspiration precautions Discussed with RN Subjective Allergies: Coded Allergies: IBUPROFEN (Verified Allergy, Unknown, 04/14/17) Subjective afebrile >48hrs leukocytosis resolved Bcx NTD Objective Vital Signs Last 24 Hour Vital Signs Date Time Temp Pulse Resp B/P (MAP) Pulse Ox O2 Delivery O2 Flow Rate FiO2 08/02/18 09:00 Room Air 08/02/18 08:00 98.8 88 20 121/81 (94) 97 08/02/18 04:00 98.5 84 20 117/78 (91) 97 08/02/18 00:00 98.9 80 19 110/68 (82) 95 08/01/18 21:00 Room Air 08/01/18 20:00 99.2 83 19 118/68 (85) 95 08/01/18 16:00 99.1 75 18 111/67 (82) 95 08/01/18 12:00 99.0 81 18 117/78 (91) 95 Height (Feet): 5 Height (Inches): 8.00 Weight (Pounds): 260 Objective HEENT: No pale conjunctivae. No icterus. NECK: No lymphadenopathy. CHEST: Clear. HEART: S1 and S2. ABDOMEN: The patient has right upper quadrant tenderness. Rao sign positive. Bowel sounds present. EXTREMITIES: No cyanosis at this time. NEUROLOGIC: Awake and alert. SKIN: No rash. Microbiology Date/Time Source Procedure Growth Status 07/30/18 12:35 Nasopharynx Influenza Types A,B Antigen (REMBERTO) - Final Complete Laboratory Tests Test 08/02/18 07:05 White Blood Count 7.2 K/UL (4.8-10.8) Red Blood Count 3.91 M/UL (4.20-5.40) L Hemoglobin 9.8 G/DL (12.0-16.0) L Hematocrit 30.8 % (37.0-47.0) L Mean Corpuscular Volume 79 FL (80-99) L Mean Corpuscular Hemoglobin 25.1 PG (27.0-31.0) L Mean Corpuscular Hemoglobin Concent 31.9 G/DL (32.0-36.0) L Red Cell Distribution Width 12.5 % (11.6-14.8) Platelet Count 193 K/UL (150-450) Mean Platelet Volume 7.9 FL (6.5-10.1) Neutrophils (%) (Auto) 60.3 % (45.0-75.0) Lymphocytes (%) (Auto) 30.9 % (20.0-45.0) Monocytes (%) (Auto) 6.6 % (1.0-10.0) Eosinophils (%) (Auto) 1.1 % (0.0-3.0) Basophils (%) (Auto) 1.1 % (0.0-2.0) Sodium Level 138 MMOL/L (136-145) Potassium Level 4.1 MMOL/L (3.5-5.1) Chloride Level 106 MMOL/L (98-107) Carbon Dioxide Level 26 MMOL/L (21-32) Anion Gap 6 mmol/L (5-15) Blood Urea Nitrogen 8 mg/dL (7-18) Creatinine 0.8 MG/DL (0.55-1.30) Estimat Glomerular Filtration Rate > 60 mL/min (>60) Glucose Level 100 MG/DL (74-106) Calcium Level 8.2 MG/DL (8.5-10.1) L Current Medications Medications (Trade) Dose Ordered Sig/Kian Route PRN Reason Start Time Stop Time Status Last Admin Dose Admin Acetaminophen (Tylenol) 650 mg Q6H PRN ORAL Temp > 100.5 07/28/18 16:15 08/27/18 16:14 07/31/18 09:43 Ciprofloxacin (Cipro 500mg tab) 500 mg EVERY 12 HOURS ORAL 08/01/18 22:00 08/08/18 21:59 08/02/18 09:19 Dextrose (Dextrose 50%) 25 ml Q30M PRN IV Hypoglycemia 07/28/18 14:20 08/27/18 14:19 Dextrose (Dextrose 50%) 50 ml Q30M PRN IV Hypoglycemia 07/28/18 14:20 08/27/18 14:19 Dextrose/ Electrolytes 1,000 ml @ 100 mls/hr Q10H IV 07/28/18 15:00 08/27/18 14:59 08/02/18 06:45 Diphenhydramine HCl (Benadryl) 25 mg Q6H PRN ORAL Itching/Pruritis 07/28/18 14:20 08/27/18 14:19 Famotidine (Pepcid) 20 mg Q12HR ORAL 08/02/18 09:00 09/01/18 08:59 08/02/18 09:19 Lorazepam (Ativan 2mg/ml 1ml) 0.5 mg Q4H PRN IV For Anxiety 07/28/18 14:20 08/04/18 14:19 Metronidazole (Flagyl) 500 mg Q8HR ORAL 08/01/18 22:00 08/08/18 21:59 08/02/18 06:46 Morphine Sulfate (Morphine Sulfate) 1 mg Q4H PRN IVP Mild Pain (Pain Scale 1-3) 07/31/18 18:00 08/07/18 17:59 Morphine Sulfate (Morphine Sulfate) 2 mg Q4H PRN IVP Moderate Pain (Pain Scale 4-6) 07/31/18 17:30 08/07/18 17:29 Morphine Sulfate (Morphine Sulfate) 4 mg Q4H PRN IVP Severe Pain (Pain Scale 7-10) 07/31/18 18:00 08/07/18 17:59 08/02/18 06:46 Ondansetron HCl (Zofran) 4 mg Q6H PRN IVP Nausea & Vomiting 07/28/18 14:20 08/27/18 14:19 Diamond Jacobson M.D. Aug 02, 2018 11:15
[2018-08-02 12:00] VITALS: BP 126/79
--- NOTE | 2018-08-02 13:34 | General Progress Note ---
Assessment/Plan Problem List: (1) Fever ICD Codes: R50.9 - Fever, unspecified SNOMED: 575354314 (2) UTI (urinary tract infection) ICD Codes: N39.0 - Urinary tract infection, site not specified SNOMED: 50999229 (3) Abdominal pain ICD Codes: R10.9 - Unspecified abdominal pain SNOMED: 76984007 Qualifiers: Qualified Codes: R10.11 - Right upper quadrant pain (4) Cholecystitis ICD Codes: K81.9 - Cholecystitis, unspecified SNOMED: 10078588 Status: stable, progressing Assessment/Plan npo ivf abx tyl prn sx cleared cbc dc home Subjective Constitutional: Reports: weakness Allergies: Coded Allergies: IBUPROFEN (Verified Allergy, Unknown, 04/14/17) All Systems: reviewed and negative except above Subjective calm sl nausea passed gas tolerated lunch Objective Last 24 Hour Vital Signs Date Time Temp Pulse Resp B/P (MAP) Pulse Ox O2 Delivery O2 Flow Rate FiO2 08/02/18 09:00 Room Air 08/02/18 08:00 98.8 88 20 121/81 (94) 97 08/02/18 04:00 98.5 84 20 117/78 (91) 97 08/02/18 00:00 98.9 80 19 110/68 (82) 95 08/01/18 21:00 Room Air 08/01/18 20:00 99.2 83 19 118/68 (85) 95 08/01/18 16:00 99.1 75 18 111/67 (82) 95 Intake and Output 08/01/18 08/02/18 19:00 07:00 Intake Total 600 ml 480 ml Balance 600 ml 480 ml Intake Oral 600 ml 480 ml # Voids 4 3 Laboratory Tests 08/02/18 07:05: White Blood Count 7.2, Red Blood Count 3.91L, Hemoglobin 9.8L, Hematocrit 30.8L , Mean Corpuscular Volume 79L, Mean Corpuscular Hemoglobin 25.1L, Mean Corpuscular Hemoglobin Concent 31.9L, Red Cell Distribution Width 12.5, Platelet Count 193, Mean Platelet Volume 7.9, Neutrophils (%) (Auto) 60.3, Lymphocytes (%) (Auto) 30.9, Monocytes (%) (Auto) 6.6, Eosinophils (%) (Auto) 1.1, Basophils (%) (Auto) 1.1, Sodium Level 138, Potassium Level 4.1, Chloride Level 106, Carbon Dioxide Level 26, Anion Gap 6, Blood Urea Nitrogen 8, Creatinine 0.8, Estimat Glomerular Filtration Rate > 60, Glucose Level 100, Calcium Level 8.2L Height (Feet): 5 Height (Inches): 8.00 Weight (Pounds): 260 Scott Wood DO Aug 02, 2018 13:34
[2018-08-02] MEDS ORDERED: NORCO 5-325 TA1 EACH ORAL (16:01)
[2018-08-02] MEDS ORDERED: COLACE100 MG ORAL (16:01)
--- NOTE | 2018-08-02 16:45 | General Progress Note ---
Progress Note Progress Note Doing great. tolerating diet. pain improved. no n/v/f/c. labs noted wounds c/d/i exam benign d/c home rx written instructions given Bran Parmar Aug 02, 2018 16:45
--- NOTE | 2018-08-03 10:57 | Discharge Summary ---
Discharge Summary Discharge Summary _ DATE OF ADMISSION: 07/28/2018 DATE OF DISCHARGE: 08/02/2018 DISCHARGED BY: Dr. Scott Wood CONSULTANTS: Dr. Bran Milner [facility] COURSE: Patient is a 27-year-old female, who lives at home, no medical history, presented to ED complaining of nausea and abdominal pain for 3 days. Patient had increased right-sided flank pain. She had gradual onset of symptoms. She reported dysuria. Pain was radiating to the back. She was recently diagnosed with gallstones. She denied any vomiting. She had increased pain after a meal. She had recent headache and mild sore throat. On evaluation at the ED, vital signs were stable, except for low-grade fever. Blood work showed leukocytosis, WBC 12. Hemoglobin and hematocrit were stable. Chemistries were stable. Urinalysis was with +1 leukocyte esterase, 0-2 RBC, 0-2 WBC, negative nitrite. Abdominal and pelvic CAT scan showed acute calculus cholecystitis with mildly dilated CBD without obvious obstructing stone or mass. She was then admitted for acute cholecystitis. GI and surgical consultation were done. Patient was placed on n.p.o. status. She was given IV fluids. ID was consulted. Patient was having low-grade fever. She was started on IV Zosyn. HIDA scan was done and showed positive study showing cystic duct obstruction. Findings were consistent with acute cholecystitis. On 07/31/2018, she underwent laparoscopic cholecystectomy. She tolerated procedure well. Surgery was uneventful. Post -operatively, she was doing well. Diet was advanced as tolerated. Abdominal examination showed nontender, nondistended abdomen with positive bowel sounds. Wounds were clean, dry and intact. She was tolerating diet well. There was no nausea, vomiting, fever or chills. Blood culture did not isolate any growth. Zosyn was discontinued. She was advised to continue p.o. ciprofloxacin and Flagyl. She was then cleared for discharge. FINAL DIAGNOSES: Sepsis Acute cholecystitis status post laparoscopic cholecystectomy Urinary tract infection DISPOSITION: Patient was discharged home. DISCHARGE MEDICATIONS: Refer to Discharge Medication List. DISCHARGE INSTRUCTIONS: Follow-up in a week. Follow-up with Dr. Arceo in 2 weeks. I have been assigned to dictate discharge summary on this account, and I was not involved in the patient's management. Lisa Werner NP Aug 03, 2018 10:57
== END 2018-08-02 17:25 | disposition home or self-care (01) | DRG 710 ==
LOC: EMR 06:23 → 3E 09:30 → EDBEDREQ 09:58
PROC: 0FT44ZZ Resection of Gallbladder, Percutaneous Endoscopic Approach (ICD-10-PCS; principal; 2018-07-31 13:00)
DX: A41.9 Sepsis, unspecified organism (principal); K81.0 Acute cholecystitis; N39.0 Urinary tract infection, site not specified
CPT/HCPCS: 36415; 71045; 74177; 76700; 78266; 80048; 80053; 81003; 81025; 82248; 83690; 85007; 85025; 85610; 85730; 86710; 86850; 86900; 86901; 87040; 94003; 94150; 96374; 96375; 96376; 97803; 99285; J2405

== ENCOUNTER 2018-08-24 14:53 | Emergency (ER) | payer OTHER ==
[~2018-08-24] VITALS: Ht 172.7 cm; Wt 117.9 kg
[~2018-08-24 14:53] MED LIST changes: +COLACE100 MG ORAL; +IBUPROFEN600 MG ORAL; +NORCO 5-325 TA1 EACH ORAL; +ZOFRAN4 M3 ORAL
[2018-08-24 15:05] VITALS: BP 115/76
--- NOTE | 2018-08-24 15:05 | NUR ---
ED Nurse Note: A/Ox4. Ambulated in to ER due to increase in pain since 08/22/18 on the gallbladder surgical site. The gallbladder removal surgery was done on 07/31/18. Total of four incision sites noted, pt came with the dressing applied at the site. No s/s of bleeding noted. No hot to touch nor rash noted around the site. Seen by TOMMY Padilla. Pt states that pain increases with cough.
--- NOTE | 2018-08-24 15:32 | NUR ---
ED Nurse Note: blood and cultures sent down to the lab.
--- NOTE | 2018-08-24 15:43 | Emergency Room Report ---
History of Present Illness General Chief Complaint: Pain Present Illness HPI 27 -year-old female presents to the emergency department complaining of 10 out of 10 in severity localized pain to the right upper quadrant at the surgical site 2 days. Patient also reports that she caught an upper respiratory cold 2 days ago and every time she coughs is when she has extreme pain. Patient reports some tenderness at the surgical site. Patient denies fevers, chills, erythema, warmth or discharge about the surgical sites. she has been eating low fat veggie only diet. Denies N/V/C/D. Allergies: Coded Allergies: IBUPROFEN (Verified Allergy, Unknown, 04/14/17) Patient History Past Medical History: see triage record Past Surgical History: none Pertinent Family History: none Now: No Reviewed Nursing Documentation: PMH: Agreed; PSxH: Agreed Nursing Documentation-PMH Hx Cardiac Problems: No - gallbladder removal on 07/31/18 Hx Cancer: No Hx Gastrointestinal Problems: No Hx Neurological Problems: No Review of Systems All Other Systems: negative except mentioned in HPI Physical Exam Vital Signs Date Time Temp Pulse Resp B/P (MAP) Pulse Ox O2 Delivery O2 Flow Rate FiO2 08/24/18 15:01 98.6 81 22 115/76 96 Room Air Sp02 EP Interpretation: reviewed, normal General Appearance: no apparent distress, alert, GCS 15, non-toxic Head: normocephalic, atraumatic Eyes: bilateral eye normal inspection, bilateral eye PERRL ENT: hearing grossly normal, normal voice Neck: full range of motion Respiratory: lungs clear, normal breath sounds, speaking full sentences Cardiovascular #1: regular rate, rhythm Gastrointestinal: normal bowel sounds, soft, tenderness - mild tenderness to deep palpation of the surgical site overlaying where the gallbladder would be located. no TTP on other surgical sites, no erythema, no warmth, no discharge noted. Rectal: deferred Genitourinary: normal inspection Musculoskeletal: back normal, gait/station normal, normal range of motion, non- tender Neurologic: alert, oriented x3, responsive, motor strength/tone normal, sensory intact, speech normal, grossly normal Psychiatric: judgement/insight normal Skin: normal color, no rash, warm/dry, well hydrated Lymphatic: no adenopathy Medical Decision Making PA Attestation Dr. herrera is my supervising Physician whom patient management has been discussed with. Diagnostic Impression: Primary Impression: Post-op pain ER Course 27 -year-old female presents to the emergency department complaining of 10 out of 10 in severity localized pain to the right upper quadrant at the surgical site 2 days. Patient also reports that she caught an upper respiratory cold 2 days ago and every time she coughs is when she has extreme pain. Patient reports some tenderness at the surgical site. Patient denies fevers, chills, erythema, warmth or discharge about the surgical sites. she has been eating low fat veggie only diet. Denies N/V/C/D. Ddx considered but are not limited to surgical site infection, cellulitis, seroma, abscess Vital signs: are WNL, pt. is afebrile H&PE are most consistent with pain at or near recent surgical site. ORDERS: -CBC: Unremarkable -CMP: Unremarkable -Blood Cultures: Pending -Lactic Acid: WNL= 1 ED INTERVENTIONS: -[place] PO Consulted with pt.'s surgeon. DISCHARGE: At this time pt. is stable for d/c to home. Will provide printed patient care instructions, and any necessary prescriptions. Care plan and follow up instructions have been discussed with the patient prior to discharge. Labs Test 08/24/18 15:10 White Blood Count 7.8 K/UL (4.8-10.8) Red Blood Count 4.58 M/UL (4.20-5.40) Hemoglobin 11.9 G/DL (12.0-16.0) Hematocrit 37.0 % (37.0-47.0) Mean Corpuscular Volume 81 FL (80-99) Mean Corpuscular Hemoglobin 26.0 PG (27.0-31.0) Mean Corpuscular Hemoglobin Concent 32.2 G/DL (32.0-36.0) Red Cell Distribution Width 13.2 % (11.6-14.8) Platelet Count 169 K/UL (150-450) Mean Platelet Volume 9.0 FL (6.5-10.1) Neutrophils (%) (Auto) 61.5 % (45.0-75.0) Lymphocytes (%) (Auto) 29.1 % (20.0-45.0) Monocytes (%) (Auto) 6.2 % (1.0-10.0) Eosinophils (%) (Auto) 1.5 % (0.0-3.0) Basophils (%) (Auto) 1.6 % (0.0-2.0) Sodium Level 140 MMOL/L (136-145) Potassium Level 4.0 MMOL/L (3.5-5.1) Chloride Level 104 MMOL/L (98-107) Carbon Dioxide Level 28 MMOL/L (21-32) Anion Gap 9 mmol/L (5-15) Blood Urea Nitrogen 10 mg/dL (7-18) Creatinine 0.8 MG/DL (0.55-1.30) Estimat Glomerular Filtration Rate > 60 mL/min (>60) Glucose Level 117 MG/DL (74-106) Lactic Acid Level 1.00 mmol/L (0.4-2.0) Calcium Level 8.5 MG/DL (8.5-10.1) Total Bilirubin 0.4 MG/DL (0.2-1.0) Aspartate Amino Transf (AST/SGOT) 34 U/L (15-37) Alanine Aminotransferase (ALT/SGPT) 54 U/L (12-78) Alkaline Phosphatase 106 U/L (46-116) Total Protein 7.4 G/DL (6.4-8.2) Albumin 3.4 G/DL (3.4-5.0) Globulin 4.0 g/dL Albumin/Globulin Ratio 0.9 (1.0-2.7) Last Vital Signs Date Time Temp Pulse Resp B/P (MAP) Pulse Ox O2 Delivery O2 Flow Rate FiO2 08/24/18 15:05 98.6 83 22 115/76 96 Room Air Disposition: HOME, SELF-CARE Condition: Stable Physician Consult: Dr. Ghulam Garza Codeine/Promethazine Hcl* (PROMETHAZINE-CODEINE SYRUP*) 118 Ml Syrup 5 ML ORAL Q6H PRN for For Cough, #120 ML 0 Refills Prov: Valerie Akhtar 08/24/18 Patient Instructions: Cough, Adult, [id number], Laparoscopic Cholecystectomy , Care After, [id number] Additional Instructions: Take medications as directed. Follow up with a Primary Care Provider in 3-5 days, even if your symptoms have resolved. Return sooner to ED if new symptoms occur, or current symptoms become worse. - Please note that this Emergency Department Report was dictated using [employer] walker technology software, occasionally this can lead to erroneous entry secondary to interpretation by the dictation equipment. Valerie Akhtar Aug 24, 2018 15:43
[2018-08-24 15:49] LABS: ANION GAP 9 mmol/L (5-15); BLOOD UREA NITROGEN 10 mg/dL (7-18); CALCIUM 8.5 MG/DL (8.5-10.1); CARBON DIOXIDE 28 MMOL/L (21-32); CHLORIDE 104 MMOL/L (98-107); CREATININE 0.8 MG/DL (0.55-1.30); SODIUM 140 MMOL/L (136-145)
[2018-08-24 15:51] LABS: BASOPHILS % (AUTO) 1.6 % (0.0-2.0); EOSINOPHILS % (AUTO) 1.5 % (0.0-3.0); HEMOGLOBIN 11.9 G/DL (12.0-16.0); LYMPHOCYTES % (AUTO) 29.1 % (20.0-45.0); MEAN CORPUSCULAR VOLUME 81 FL (80-99); MONOCYTES % (AUTO) 6.2 % (1.0-10.0); NEUTROPHILS % (AUTO) 61.5 % (45.0-75.0); PLATELET COUNT 169 K/UL (150-450); RED BLOOD COUNT 4.58 M/UL (4.20-5.40); RED CELL DISTRIBUTION WIDTH 13.2 % (11.6-14.8); WHITE BLOOD COUNT 7.8 K/UL (4.8-10.8)
[2018-08-24 15:53] LABS: ALANINE AMINOTRANSFERASE 54 U/L (12-78); ALBUMIN 3.4 G/DL (3.4-5.0); ALBUMIN/GLOBULIN RATIO 0.9 (1.0-2.7); ALKALINE PHOSPHATASE 106 U/L (46-116); ASPARTATE AMINO TRANSFERASE 34 U/L (15-37); BILIRUBIN,TOTAL 0.4 MG/DL (0.2-1.0)
[2018-08-24] MEDS ORDERED: Norco 5mg/325mg tab ORAL ONE (16:00)
[2018-08-24] MEDS ORDERED: PROMETHAZINE-C118 M1 ORAL (17:07)
[2018-08-24 17:38] VITALS: BP 112/69
[2018-08-24 17:39] VITALS: BP 112/69
--- NOTE | 2018-08-24 17:40 | NUR ---
ED Nurse Note: A/Ox4. Pt is cleared by TOMMY Padilla. DC instruction and prescription given, pt verbalized understanding. ID wrist band removed. Denies any pain at this time. All belongings taken by pt. Pt ambulated out of ER with steady gait.
--- NOTE | 2018-08-25 15:50 | Diagnostic Imaging Report ---
Indication: Chest pain Comparison: 07/30/2018 A single view chest radiograph was obtained. Findings: Cardiomediastinal appearance is within normal limits for age. The lungs are clear. Pulmonary vascularity is appropriate. The diaphragmatic contour is smooth and costophrenic angles are sharp. No pleural effusions are identified. The bones are unremarkable. Impression: No acute findings
== END 2018-08-24 17:40 | disposition home or self-care (01) ==
LOC: EMR 16:04
DX: G89.18 Other acute postprocedural pain (principal); R10.11 Right upper quadrant pain; Z88.6 Allergy status to analgesic agent
CPT/HCPCS: 36415; 71045; 80053; 83605; 85025; 87040; 99284

== ENCOUNTER 2019-01-26 11:37 | Emergency (ER) | payer OTHER ==
[~2019-01-26] VITALS: Ht 172.7 cm; Wt 113.9 kg
[~2019-01-26 11:37] MED LIST changes: +PROMETHAZINE-C118 M1 ORAL
--- NOTE | 2019-01-26 11:47 | NUR ---
ED Nurse Note: pt walked in c/o abd pain x 2 wks, pt reports it has been on and off for past weeks but worsen yesterday, reports nausea but no vomiting, denies diarrhea but reports constipation. pt states she doesn't have problem with urination except hesitancy. pt AA&ox4, gcs=15, skin warm and dry, resp even and unlabored on RA, no active dry heaves nor vomiting noted, will cont monitor. vss.
[2019-01-26 11:48] VITALS: BP 135/85
[2019-01-26 12:52] LABS: APPEARANCE,URINE CLEAR; BILIRUBIN, URINE NEGATIVE (NEGATIVE); COLOR,URINE PALE YELLOW; GLUCOSE, URINE (UA) NEGATIVE (NEGATIVE); KETONES,URINE NEGATIVE (NEGATIVE); LEUKOCYTE ESTERASE ,URINE NEGATIVE (NEGATIVE); NITRITE,URINE NEGATIVE (NEGATIVE); PH,URINE 6.5 (4.5-8.0); PROTEIN,URINE NEGATIVE (NEGATIVE); UROBILINOGEN,URINE NORMAL MG/DL (0.0-1.0)
[2019-01-26 12:56] LABS: BASOPHILS % (AUTO) 1.4 % (0.0-2.0); EOSINOPHILS % (AUTO) 1.6 % (0.0-3.0); HEMOGLOBIN 12.8 G/DL (12.0-16.0); LYMPHOCYTES % (AUTO) 31.7 % (20.0-45.0); MEAN CORPUSCULAR VOLUME 79 FL (80-99); MONOCYTES % (AUTO) 6.1 % (1.0-10.0); NEUTROPHILS % (AUTO) 59.4 % (45.0-75.0); PLATELET COUNT 196 K/UL (150-450); RED BLOOD COUNT 5.06 M/UL (4.20-5.40); RED CELL DISTRIBUTION WIDTH 13.2 % (11.6-14.8); WHITE BLOOD COUNT 6.4 K/UL (4.8-10.8)
--- NOTE | 2019-01-26 12:59 | Emergency Room Report ---
History of Present Illness General Chief Complaint: Abdominal Pain Source: Medical Record Present Illness HPI 28-year-old female with history of cholecystitis post status laparoscopic cholecystectomy x6 months here complaining of 2 weeks of intermittent epigastric , right and left upper quadrant pain with intermittent nausea and one episode of vomiting. Patient is rating the pain 10 out of 10 mostly worse in supine position. Denies diarrhea, fever and chills. Patient reports that that she has been eating a lot of greasy food. Denies alcohol ingestion smoking. Patient last saw her surgeon 6 months ago and has not established a primary care physician yet. She also denies recent travel or antibiotic use. She further complains of pain in the left knee radiating to left buttocks x3 weeks. She reports that she twisted her knee 2 years ago and never followed up with her primary doctor or was never evaluated for her knee pain. She reports that she is usually standing long hours when she is working. Rating the pain in her left knee 3 out of 10, intermittent and has not taken any medication for pain. Denies tingling and numbness, calf tenderness. Denies all other injuries, chest pain, shortness of breath, palpitation and other associated symptoms Allergies: Coded Allergies: IBUPROFEN (Verified Allergy, Unknown, 04/14/17) Patient History Past Medical History: see triage record Past Surgical History: unable to obtain Pertinent Family History: none Last Menstrual Period: 01/02/19 Now: No Immunizations: UTD Reviewed Nursing Documentation: PMH: Agreed; PSxH: Agreed Nursing Documentation-PMH Past Medical History: No History, Except For Hx Cardiac Problems: No - gallbladder removal on 07/31/18 Hx Cancer: No Hx Gastrointestinal Problems: No Hx Neurological Problems: No Review of Systems All Other Systems: negative except mentioned in HPI Physical Exam Vital Signs Date Time Temp Pulse Resp B/P (MAP) Pulse Ox O2 Delivery O2 Flow Rate FiO2 01/26/19 11:41 98.2 72 18 135/85 (102) 98 Room Air Sp02 EP Interpretation: reviewed, normal General Appearance: normal inspection, well appearing, no apparent distress, alert Head: normocephalic, atraumatic Eyes: bilateral eye normal inspection, bilateral eye PERRL ENT: normal ENT inspection, normal pharynx Neck: normal inspection, full range of motion, supple, no carotid bruits Respiratory: normal inspection, chest non-tender, lungs clear, normal breath sounds, no rhonchi, no wheezing Cardiovascular #1: normal inspection, normal peripheral pulses, regular rate, rhythm, no murmur, normal capillary refill Gastrointestinal: normal bowel sounds, non tender, soft, no organomegaly, no peritonitis, no bruit, non-distended, no hernia, no pulsatile mass Rectal: deferred Genitourinary: no CVA tenderness Musculoskeletal: normal inspection, back normal, digits/nails normal, gait/ station normal, normal range of motion, no calf tenderness, pelvis stable, Forrest 's Sign negative Neurologic: normal inspection, alert, oriented x3, responsive, sleep technologist III-XII nml as tested, motor strength/tone normal Psychiatric: normal inspection, judgement/insight normal, memory normal Skin: normal inspection, normal color, no rash, warm/dry, palpation normal, well hydrated Lymphatic: normal inspection, no adenopathy Medical Decision Making PA Attestation All my diagnosis and treatment plans were reviewed ad discussed with my supervising physician Dr. Obrien Diagnostic Impression: Primary Impression: Ventral hernia without obstruction or gangrene Additional Impression: Chronic knee pain ER Course 28-year-old female with history of cholecystitis post status laparoscopic cholecystectomy x6 months here complaining of 2 weeks of intermittent epigastric , right and left upper quadrant pain with intermittent nausea and one episode of vomiting. Patient is rating the pain 10 out of 10 mostly worse in supine position. Denies diarrhea, fever and chills. Patient reports that that she has been eating a lot of greasy food. Denies alcohol ingestion smoking. Patient last saw her surgeon 6 months ago and has not established a primary care physician yet. She also denies recent travel or antibiotic use. She further complains of pain in the left knee radiating to left buttocks x3 weeks. She reports that she twisted her knee 2 years ago and never followed up with her primary doctor or was never evaluated for her knee pain. She reports that she is usually standing long hours when she is working. Rating the pain in her left knee 3 out of 10, intermittent and has not taken any medication for pain. Denies tingling and numbness, calf tenderness. Denies all other injuries, chest pain, shortness of breath, palpitation and other associated symptoms Ddx considered but are not limited to: appendicitis, cholycisitis, gastritis, gasthroentritis, UTI, pylonephritis, SBO, diverticulitis, influenza with GI manifestation, SD, complication with , ventral hernia, adhesions post op, chronic knee pain, knee strain knee sprain Vital signs: are WNL, pt. is afebrile H&PE are most consistent with: left knee chronic pain, ventral hernia no obstruction ORDERS: abdominal CT, abdominal pain set, zofran, tyelnol ED INTERVENTIONS: zofran, tylenol DISCHARGE: At this time pt. is stable for d/c to home. Will provide printed patient care instructions, and any necessary prescriptions. Care plan and follow up instructions have been discussed with the patient prior to discharge. Follow-up with your primary care provider for referral to surgeon you have a possible ventral hernia on the right upper quadrant which is not acute to be further assessed by your primary doctor and sent to surgeon there is no bulging mass without lack of blood with blood flow noted your knee pain is chronic as it has occurred 2 years ago to follow-up with her primary care provider for possible MRI as x-ray will not benefit you at this time weight loss advised to avoid eating greasy food with less pressure in the left knee take medication as directed CT/MRI/US Diagnostic Results CT/MRI/US Diagnostic Results : Imaging Test Ordered: Abdominal CT no contrast Impression IMPRESSION: 1. No acute intra-abdominal or intrapelvic findings. No bowel obstruction or bowel wall thickening. No obstructive uropathy. 2. Small fat-containing ventral abdominal wall herniation in the right upper quadrant, likely an incisional hernia (series 3 image 58). 3. Status post cholecystectomy. Last Vital Signs Date Time Temp Pulse Resp B/P (MAP) Pulse Ox O2 Delivery O2 Flow Rate FiO2 01/26/19 11:48 98.2 72 18 135/85 98 Room Air Disposition: HOME, SELF-CARE Condition: Stable Referrals: CAMERON BAZAN,REFERRING (PCP) Patient Instructions: Knee Pain, [id number], Ventral Hernia Additional Instructions: Follow-up with your primary care provider for referral to surgeon you have a possible ventral hernia on the right upper quadrant which is not acute to be further assessed by your primary doctor and sent to surgeon there is no bulging mass without lack of blood with blood flow noted your knee pain is chronic as it has occurred 2 years ago to follow-up with her primary care provider for possible MRI as x-ray will not benefit you at this time weight loss advised to avoid eating greasy food with less pressure in the left knee take medication as directed David Castro Jan 26, 2019 12:59
[2019-01-26 13:03] LABS: ANION GAP 5 mmol/L (5-15); BLOOD UREA NITROGEN 10 mg/dL (7-18); CALCIUM 8.8 MG/DL (8.5-10.1); CARBON DIOXIDE 30 MMOL/L (21-32); CHLORIDE 105 MMOL/L (98-107); CREATININE 0.7 MG/DL (0.55-1.30); POTASSIUM 4.1 MMOL/L (3.5-5.1); SODIUM 140 MMOL/L (136-145)
[2019-01-26 13:08] LABS: ALANINE AMINOTRANSFERASE 37 U/L (12-78); ALBUMIN 3.6 G/DL (3.4-5.0); ALBUMIN/GLOBULIN RATIO 0.9 (1.0-2.7); ALKALINE PHOSPHATASE 117 U/L (46-116); ASPARTATE AMINO TRANSFERASE 22 U/L (15-37); BILIRUBIN,TOTAL 0.5 MG/DL (0.2-1.0)
--- NOTE | 2019-01-26 13:10 | NUR ---
ED Nurse Note: Patient taken down for CT exam in wheelchair by tech.
--- NOTE | 2019-01-26 13:21 | NUR ---
ED Nurse Note: Patient returned from CT scan. Patient resting in bed.
--- NOTE | 2019-01-26 14:19 | Diagnostic Imaging Report ---
EXAM: CT Abdomen and Pelvis Without Intravenous Contrast CLINICAL HISTORY: ABD PAIN TECHNIQUE: Axial computed tomography images of the abdomen and pelvis without intravenous contrast. CTDI is 19.66 mGy and DLP is 1087 mGy-cm. One or more of the following dose reduction techniques were used: automated exposure control, adjustment of the mA and/or kV according to patient size, use of iterative reconstruction technique. Coronal and sagittal images were obtained and reviewed. COMPARISON: CT abdomen and pelvis dated 07/28/18 FINDINGS: Lung bases: Unremarkable. No consolidation. No effusions. ABDOMEN: Liver: Unremarkable. Gallbladder and bile ducts: Status post cholecystectomy. No ductal dilation. Pancreas: Unremarkable. No ductal dilation. Spleen: Unremarkable. No splenomegaly. Adrenals: Unremarkable. No mass. Kidneys and ureters: Unremarkable. No obstructing stones. No hydronephrosis. Stomach and bowel: Unremarkable. No obstruction. No mucosal thickening. PELVIS: Appendix: The appendix appears normal. Bladder: Unremarkable. No stones. Reproductive: Unremarkable as visualized. ABDOMEN and PELVIS: Intraperitoneal space: Unremarkable. No free air. No significant fluid collection. Bones/joints: Mild degenerative disc space loss at L5-S1. No acute fracture. No dislocation. Soft tissues: Small fat-containing ventral abdominal wall herniation in the right upper quadrant (series 3 image 58). Vasculature: Unremarkable. No abdominal aortic aneurysm. Lymph nodes: Unremarkable. No enlarged lymph nodes. IMPRESSION: 1. No acute intra-abdominal or intrapelvic findings. No bowel obstruction or bowel wall thickening. No obstructive uropathy. 2. Small fat-containing ventral abdominal wall herniation in the right upper quadrant, likely an incisional hernia (series 3 image 58). 3. Status post cholecystectomy.
[2019-01-26] MEDS ORDERED: TYLENOL EXTRA500 MG ORAL (14:26)
[2019-01-26] MEDS ORDERED: ZOFRAN4 M1 ORAL (14:26)
[2019-01-26 14:40] VITALS: BP 99/60
--- NOTE | 2019-01-26 14:40 | NUR ---
ED Nurse Note: Patient is being discharged from medical care. Awake, alert and oriented x4. After care instructions, including prescriptions were given. Patient verbalized understanding of After care instructions. IV & ID band were removed. Patient ambulated out with all personal belongings with steady gait. Addendum: 01/26/[address] report given.
== END 2019-01-26 14:43 | disposition home or self-care (01) ==
LOC: EMR 12:50
DX: K43.9 Ventral hernia without obstruction or gangrene (principal); G89.29 Other chronic pain; M25.562 Pain in left knee; Z88.6 Allergy status to analgesic agent; Z90.49 Acquired absence of other specified parts of digestive tract
CPT/HCPCS: 36415; 74176; 80053; 81003; 81025; 83690; 85025; 96374; 99284; J2405

== ENCOUNTER 2019-04-30 16:58 | Emergency (ER) | payer OTHER ==
[~2019-04-30] VITALS: Ht 172.7 cm; Wt 112.5 kg
[~2019-04-30 16:58] MED LIST changes: +TYLENOL EXTRA500 MG ORAL; +ZOFRAN4 M1 ORAL
[2019-04-30] MEDS ORDERED: Morphine Sulfate 4mg/ml Inj (IV USE ONLY) IVP ONE (17:30)
[2019-04-30] MEDS ORDERED: Isovue-300 100ml vial INJ PRN (17:30)
--- NOTE | 2019-04-30 18:00 | NUR ---
ED Nurse Note:pt. came with anbilical abdominal pain, blood and urine sent to labs, VSS, given IV fluids and pain meds
[2019-04-30 18:07] LABS: BASOPHILS % (AUTO) 1.1 % (0.0-2.0); EOSINOPHILS % (AUTO) 0.9 % (0.0-3.0); HEMOGLOBIN 12.1 G/DL (12.0-16.0); LYMPHOCYTES % (AUTO) 25.3 % (20.0-45.0); MEAN CORPUSCULAR VOLUME 76 FL (80-99); MONOCYTES % (AUTO) 4.6 % (1.0-10.0); NEUTROPHILS % (AUTO) 68.1 % (45.0-75.0); PLATELET COUNT 179 K/UL (150-450); RED BLOOD COUNT 4.71 M/UL (4.20-5.40); RED CELL DISTRIBUTION WIDTH 11.6 % (11.6-14.8); WHITE BLOOD COUNT 10.1 K/UL (4.8-10.8)
[2019-04-30 18:16] LABS: ANION GAP 8 mmol/L (5-15); BLOOD UREA NITROGEN 12 mg/dL (7-18); CALCIUM 8.5 MG/DL (8.5-10.1); CARBON DIOXIDE 24 MMOL/L (21-32); CHLORIDE 108 MMOL/L (98-107); CREATININE 0.8 MG/DL (0.55-1.30); POTASSIUM 3.7 MMOL/L (3.5-5.1); SODIUM 140 MMOL/L (136-145)
[2019-04-30 18:21] LABS: ALANINE AMINOTRANSFERASE 29 U/L (12-78); ALBUMIN 3.7 G/DL (3.4-5.0); ALKALINE PHOSPHATASE 97 U/L (46-116); ASPARTATE AMINO TRANSFERASE 21 U/L (15-37); BILIRUBIN,TOTAL 0.4 MG/DL (0.2-1.0)
[2019-04-30 18:23] VITALS: BP 121/84
[2019-04-30 18:32] LABS: APPEARANCE,URINE SLIGHTLY CLOUDY; BILIRUBIN, URINE NEGATIVE (NEGATIVE); GLUCOSE, URINE (UA) NEGATIVE (NEGATIVE); KETONES,URINE NEGATIVE (NEGATIVE); LEUKOCYTE ESTERASE ,URINE 2+ (NEGATIVE); NITRITE,URINE NEGATIVE (NEGATIVE); PH,URINE 6 (4.5-8.0); PROTEIN,URINE NEGATIVE (NEGATIVE); UROBILINOGEN,URINE NORMAL MG/DL (0.0-1.0)
[2019-04-30 18:33] LABS: COLOR,URINE YELLOW
[2019-04-30 19:05] VITALS: BP 124/83
--- NOTE | 2019-04-30 19:07 | NUR ---
HAND-OFF: Report given to Saloni.
--- NOTE | 2019-04-30 19:07 | NUR ---
ED Nurse Note:pt. had CT scan abd done
--- NOTE | 2019-04-30 19:53 | Diagnostic Imaging Report ---
Clinical Indication: Abdominal pain with nausea and feeling feverish Technique: No oral contrast utilized, per emergency room physician request IV administration nonionic contrast. Venous obtained through the abdomen and pelvis. Multiplanar reconstructions were generated. Total dose length product 1223.09 mGycm. CTDIvol(s) 19.51 mGy. Dose reduction achieved using automated exposure control Comparison: 01/26/2019 noncontrast study Findings: The appendix is normal. There is a tiny fat-containing ventral hernia in the right upper quadrant. No evidence of colonic diverticulosis or diverticulitis. No small bowel distention. No free or loculated intraperitoneal gas or fluid is evident. The distal esophagus, stomach, duodenum are unremarkable. The gallbladder has been removed. There is mild ectasia of the extrahepatic bile ducts. The liver is mildly hypoattenuating diffusely, consistent with fatty change. The pancreas, spleen, adrenals, kidneys are unremarkable. No retroperitoneal or mesenteric mass or adenopathy. No pelvic mass or adenopathy. Collapsed follicle is seen in the left ovary. The included lung bases demonstrate posterior dependent atelectatic changes. The bones demonstrate degenerative changes of the lumbosacral junction. Impression: No acute abnormality Status post cholecystectomy. Ectasia of the extrahepatic bile ducts is likely related to such as noted downstream obstructing pathology is demonstrated Mild fatty liver Other findings as noted, including the degenerative changes of the lumbosacral junction, dependent posterior pulmonary atelectatic changes, likely left ovarian collapsed follicle, small fat-containing ventral hernia This agrees with the preliminary interpretation provided overnight by [facility] teleradiology service. The CT scanner at [facility] is accredited by the [employer] and the scans are performed using protocols designed to limit radiation exposure to as low as reasonably achievable to attain images of sufficient resolution adequate for diagnostic evaluation.
[2019-04-30] MEDS ORDERED: CEPHALEXIN500 MG ORAL (20:20)
[2019-04-30] MEDS ORDERED: ACETAMINOPHEN-1 EAC1 ORAL (20:20)
[2019-04-30] MEDS ORDERED: ONDANSETRON ODT4 MG BC (20:20)
[2019-04-30 20:25] VITALS: BP 125/85
--- NOTE | 2019-04-30 20:25 | NUR ---
ER DISCHARGE NOTE: Patient is cleared to be discharged per ERMD, pt is aox4, on room air, with stable vital signs. pt was given dc and prescription instructions, pt was able to verbalize understanding, pt id band and iv site removed without complications. pt is able to ambulate with steady gait. pt took all belongings.
--- NOTE | 2019-04-30 22:44 | Emergency Room Report ---
History of Present Illness General Chief Complaint: Abdominal Pain Source: Patient Present Illness HPI 28-year-old female presents ED for evaluation. Patient complaining of abdominal pain with nausea x1 week. History of hernia. Was told that it was small initially. Pain is dull, 8 out of 10, nonradiating. Denies fevers or chills. Denies chest pain or shortness of breath. No other aggravating relieving factors. Denies any other associated symptoms Allergies: Coded Allergies: IBUPROFEN (Verified Allergy, Unknown, 04/14/17) Patient History Past Medical History: other - hernia Past Surgical History: joann Pertinent Family History: none Social History: Denies: smoking, alcohol use, drug use Last Menstrual Period: last month 8-18 Now: No Immunizations: UTD Reviewed Nursing Documentation: PMH: Agreed; PSxH: Agreed Nursing Documentation-PMH Past Medical History: No History, Except For Hx Cardiac Problems: No Hx Cancer: No Hx Gastrointestinal Problems: Yes - hernia, cholecystectomy Hx Neurological Problems: No Review of Systems All Other Systems: negative except mentioned in HPI Physical Exam Vital Signs Date Time Temp Pulse Resp B/P (MAP) Pulse Ox O2 Delivery O2 Flow Rate FiO2 04/30/19 17:06 98.4 93 18 121/84 (96) 98 Room Air Sp02 EP Interpretation: reviewed, normal General Appearance: no apparent distress, alert, GCS 15, non-toxic Head: normocephalic, atraumatic Eyes: bilateral eye normal inspection, bilateral eye PERRL ENT: hearing grossly normal, normal pharynx, no angioedema, normal voice Neck: full range of motion, supple/symm/no masses Respiratory: chest non-tender, lungs clear, normal breath sounds, speaking full sentences Cardiovascular #1: regular rate, rhythm, no edema Cardiovascular #2: 2+ carotid (R), 2+ carotid (L), 2+ radial (R), 2+ radial (L) , 2+ dorsalis pedis (R), 2+ dorsalis pedis (L) Gastrointestinal: normal bowel sounds, soft, non-distended, no guarding, no rebound, tenderness Rectal: deferred Genitourinary: normal inspection, no CVA tenderness Musculoskeletal: back normal, gait/station normal, normal range of motion, non- tender Neurologic: alert, oriented x3, responsive, motor strength/tone normal, sensory intact, speech normal Psychiatric: judgement/insight normal, memory normal, mood/affect normal, no suicidal/homicidal ideation Reflexes: 3+ bicep (R), 3+ bicep (L), 3+ tricep (R), 3+ tricep (L), 3+ knee (R) , 3+ knee (L) Lymphatic: no adenopathy Medical Decision Making Diagnostic Impression: Primary Impression: Ventral hernia Qualified Codes: K43.9 - Ventral hernia without obstruction or gangrene Additional Impression: UTI (urinary tract infection) Qualified Codes: N39.0 - Urinary tract infection, site not specified ER Course Hospital Course 28-year-old F presents to ED with abdominal pain. h/o hernia Differential diagnosis includes-appendicitis, cholecystitis, small bowel obstruction, gastritis, Clinical course Patient placed on stretcher. After initial history and physical ordered labs, pain meds, CT labs - no leukocytosis, hb/hct stable, electrolytes ok, UA + bacteria CT - ventral hernia with fat discussed findings with patient. we will discharge to home with Rx for pain meds , antibiotics. states she has a PMD I feel this is a highly complex case requiring extensive working including EKG/ Rhythm strip, Xray/CT/US, Blood/urine lab work, repeat exams while in ED, and administration of strong opiates/narcotics for pain control, admission to hospital or close patient follow up. Diagnosis - ventral hernia, UTI Stable and discharged to home with Rx Keflex, zofran, tylenol #3. Followup with PMD/surgery. Return to ED if symptoms recur or worsen Labs Test 04/30/19 17:15 04/30/19 17:45 Urine Color Yellow Urine Appearance Slightly cloudy Urine pH 6 (4.5-8.0) Urine Specific Farnam 1.020 (1.005-1.035) Urine Protein Negative (NEGATIVE) Urine Glucose (UA) Negative (NEGATIVE) Urine Ketones Negative (NEGATIVE) Urine Blood Negative (NEGATIVE) Urine Nitrite Negative (NEGATIVE) Urine Bilirubin Negative (NEGATIVE) Urine Urobilinogen Normal MG/DL (0.0-1.0) Urine Leukocyte Esterase 2+ (NEGATIVE) Urine RBC 2-4 /HPF (0 - 2) Urine WBC 5-10 /HPF (0 - 2) Urine Squamous Epithelial Cells Moderate /LPF (NONE/OCC) Urine Bacteria Moderate /HPF (NONE) Urine HCG, Qualitative Negative (NEGATIVE) White Blood Count 10.1 K/UL (4.8-10.8) Red Blood Count 4.71 M/UL (4.20-5.40) Hemoglobin 12.1 G/DL (12.0-16.0) Hematocrit 36.0 % (37.0-47.0) Mean Corpuscular Volume 76 FL (80-99) Mean Corpuscular Hemoglobin 25.7 PG (27.0-31.0) Mean Corpuscular Hemoglobin Concent 33.6 G/DL (32.0-36.0) Red Cell Distribution Width 11.6 % (11.6-14.8) Platelet Count 179 K/UL (150-450) Mean Platelet Volume 7.7 FL (6.5-10.1) Neutrophils (%) (Auto) 68.1 % (45.0-75.0) Lymphocytes (%) (Auto) 25.3 % (20.0-45.0) Monocytes (%) (Auto) 4.6 % (1.0-10.0) Eosinophils (%) (Auto) 0.9 % (0.0-3.0) Basophils (%) (Auto) 1.1 % (0.0-2.0) Sodium Level 140 MMOL/L (136-145) Potassium Level 3.7 MMOL/L (3.5-5.1) Chloride Level 108 MMOL/L (98-107) Carbon Dioxide Level 24 MMOL/L (21-32) Anion Gap 8 mmol/L (5-15) Blood Urea Nitrogen 12 mg/dL (7-18) Creatinine 0.8 MG/DL (0.55-1.30) Estimat Glomerular Filtration Rate > 60 mL/min (>60) Glucose Level 101 MG/DL (74-106) Calcium Level 8.5 MG/DL (8.5-10.1) Total Bilirubin 0.4 MG/DL (0.2-1.0) Aspartate Amino Transf (AST/SGOT) 21 U/L (15-37) Alanine Aminotransferase (ALT/SGPT) 29 U/L (12-78) Alkaline Phosphatase 97 U/L (46-116) Total Protein 7.5 G/DL (6.4-8.2) Albumin 3.7 G/DL (3.4-5.0) Globulin 3.8 g/dL Albumin/Globulin Ratio 1.0 (1.0-2.7) Lipase 158 U/L (73-393) Human Chorionic Gonadotropin, Qual Negative (NEGATIVE) CT/MRI/US Diagnostic Results CT/MRI/US Diagnostic Results : Imaging Test Ordered: CT A/P Impression Unremarkable appendix. No colitis or bowel obstruction. Cholecystectomy and biliary ectasia. Mild fatty liver. Fat-containing ventral hernia. Dominant follicle left ovary. Last Vital Signs Date Time Temp Pulse Resp B/P (MAP) Pulse Ox O2 Delivery O2 Flow Rate FiO2 04/30/19 20:25 98.4 89 18 125/85 98 Room Air Disposition: HOME, SELF-CARE Condition: Stable Scripts Cephalexin* (KEFLEX*) 500 Mg Capsule 500 MG ORAL EVERY 6 HOURS for 7 Days, CAP Prov: Marko Beal MD 04/30/19 Ondansetron Odt* (ZOFRAN ODT*) 4 Mg Tab.rapdis 4 MG BC EVERY 6 HOURS PRN for Nausea & Vomiting, #20 TAB 0 Refills Prov: Marko Beal MD 04/30/19 Acetaminophen With Codeine (T#3) (TYLENOL #3 TAB*) Y Tab 1 TAB ORAL Q8H PRN for For Pain for 3 Days, #12 TAB Prov: Marko Beal MD 04/30/19 Referrals: CAMERON BAZAN,REFERRING (PCP) [facility] Depart[facility] Forms: Return to Work Return to Work Date: May 01, 2019 Work Restrictions: No Heavy Lifting Patient Instructions: Ventral Hernia Marko Beal MD Apr 30, 2019 22:44
== END 2019-04-30 20:25 | disposition home or self-care (01) ==
LOC: EMR 20:15
DX: K43.9 Ventral hernia without obstruction or gangrene (principal); N39.0 Urinary tract infection, site not specified; Z90.49 Acquired absence of other specified parts of digestive tract; Z88.8 Allergy status to other drugs, medicaments and biological substances; K76.0 Fatty (change of) liver, not elsewhere classified
CPT/HCPCS: 36415; 74177; 80053; 81003; 81025; 83690; 84703; 85025; 87086; 87181; 96374; 96375; J2270; J2405; J7040; Q9967; Z7502; 99284

== ENCOUNTER 2019-06-15 06:29 | Emergency (ER) | payer OTHER ==
[~2019-06-15] VITALS: Ht 172.7 cm; Wt 108.9 kg
[~2019-06-15 06:29] MED LIST changes: +ACETAMINOPHEN-1 EAC1 ORAL; +CEPHALEXIN500 MG ORAL; +ONDANSETRON ODT4 MG BC
[2019-06-15 06:59] VITALS: BP 117/70
[2019-06-15] MEDS ORDERED: Lidocaine 2% Visc 15ml soln ORAL ONE (07:00)
[2019-06-15] MEDS ORDERED: Dicyclomine HCl 10mg/5ml oral soln ORAL ONE (07:00)
--- NOTE | 2019-06-15 07:01 | NUR ---
ED Nurse Note: Patient walked in to ER c/o N/V, abdominal pain 01/28. AAO x4, VSS at this time, skin is warm to touch.
--- NOTE | 2019-06-15 07:03 | Emergency Room Report ---
History of Present Illness General Chief Complaint: Abdominal Pain Source: Patient Present Illness HPI Patient is a 28-year-old female presents after increased epigastric pain. Patient reports having prior cholecystectomy. She had previous CT imaging which showed fatty liver as well as nonspecific bowel gas pattern. She reports having some intermittent pain. This had not been relieved by Mylanta. She reports having worsening pain after cereal with milk. Has she denies any vomiting or bloody stools. Similar symptoms in the past. She has ibuprofen allergy. Denies any other locations of discomfort. No diarrhea. Allergies: Coded Allergies: IBUPROFEN (Verified Allergy, Unknown, 04/14/17) Patient History Past Medical History: see triage record Last Menstrual Period: 04/2019 Now: No Reviewed Nursing Documentation: PMH: Agreed; PSxH: Agreed Nursing Documentation-PMH Hx Cardiac Problems: No Hx Cancer: No Hx Gastrointestinal Problems: Yes - hernia, cholecystectomy Hx Neurological Problems: No Review of Systems All Other Systems: negative except mentioned in HPI Physical Exam Vital Signs Date Time Temp Pulse Resp B/P (MAP) Pulse Ox O2 Delivery O2 Flow Rate FiO2 06/15/19 06:30 98.6 72 16 117/70 (86) 96 Room Air Sp02 EP Interpretation: reviewed, normal General Appearance: normal inspection, well appearing, no apparent distress, alert, GCS 15 Head: atraumatic ENT: normal ENT inspection, hearing grossly normal, normal voice Neck: normal inspection, full range of motion, supple, no bony tend Respiratory: normal inspection, lungs clear, normal breath sounds, no respiratory distress, no retraction, no wheezing Cardiovascular #1: regular rate, rhythm, no edema Gastrointestinal: normal inspection, normal bowel sounds, non tender, soft, no guarding, no hernia Genitourinary: no CVA tenderness Musculoskeletal: normal inspection, back normal, normal range of motion Neurologic: normal inspection, alert, responsive, speech normal Psychiatric: normal inspection, judgement/insight normal, mood/affect normal Medical Decision Making Diagnostic Impression: Primary Impression: Abdominal pain ER Course Patient presented for abdominal pain. Differential diagnoses included ischemic bowel, appendicitis, perforated viscus, abdominal aortic aneurysm, inferior myocardial infarction, viral gastroenteritis among others.Because patient's complexity imaging studies, and laboratory testing ordered. Patient has a benign exam and does not appear to require any imaging or laboratory testing at this time. Urine test was ordered. Patient previously been noted to have fatty liver. Patient was given GI cocktail with complete resolution of pain. She is advised dietary modifications. Patient was advised to follow-up for primary care physician for recheck and possible GI referral. Patient appears to be stable for close outpatient follow up. She is advised to return if worse. Last Vital Signs Date Time Temp Pulse Resp B/P (MAP) Pulse Ox O2 Delivery O2 Flow Rate FiO2 06/15/19 06:30 98.6 72 16 117/70 (86) 96 Room Air Status: improved Disposition: HOME, SELF-CARE Condition: Stable Scripts Dicyclomine Hcl* (DICYCLOMINE HCL*) 10 Mg Capsule 10 MG ORAL QID, #20 CAP Prov: You Fontenot MD 06/15/19 Referrals: NON PHYSICIAN (PCP) You Fontenot MD Jun 15, 2019 07:03
--- NOTE | 2019-06-15 07:06 | NUR ---
HAND-OFF: Report given to Leon YU RN.
--- NOTE | 2019-06-15 07:10 | NUR ---
ED Nurse Note: Received pt resting in bed. no acute distress noted.
[2019-06-15 07:20] VITALS: BP 121/76
[2019-06-15] MEDS ORDERED: DICYCLOMINE HCL10 MG ORAL (07:54)
[2019-06-15 07:57] VITALS: BP 118/74
--- NOTE | 2019-06-15 07:58 | NUR ---
ED Nurse Note: Pt cleared by health care Provider for discharge. pt asked about heavy lifting and doctor told pt not to lift heavier than 3 DC instructions/prescription was given and explained to pt and verbalized understanding of teachings. All medical deviecs such as ID band removed. Pt is AAO x4, ambulatory and left with all personal belongings. Addendum: 06/15/19 at 0759 by [email or web address] ED Nurse Note: Pt cleared by health care Provider for discharge. pt asked about heavy lifting and doctor told pt not to lift heavier than 20 lb. DC instructions/prescription was given and explained to pt and verbalized understanding of teachings. All medical deviecs such as ID band removed. Pt is AAO x4, ambulatory and left with all personal belongings.
== END 2019-06-15 07:59 | disposition home or self-care (01) ==
LOC: EMR 06:44
DX: R10.13 Epigastric pain (principal); Z88.8 Allergy status to other drugs, medicaments and biological substances; Z90.49 Acquired absence of other specified parts of digestive tract
CPT/HCPCS: 81025; Z7502; 99283